=== PATIENT | female | born 1945 | race Caucasian/White ===

== ENCOUNTER → 2018-02-07 | Outpatient (CLI) | payer OTHER ==
[~2018-02-07] MED LIST: ASCO500T16 PO; CALCTAB7 PO; CHOL100027 PO; COEN100C15 PO; PROBIOTIC PO; ZEAXANTHIN PO
--- NOTE | 2018-02-07 12:47 | DIAGNOSTIC IMAGING REPORT ---
NASAL BONES MIN 3 VIEWS CLINICAL HISTORY: S09.93XA Facial [id number]. Fall. COMPARISON STUDY: None. FINDINGS: Mild displaced fracture at the nasal bones. This demonstrates 1 mm of depression. Nasal soft tissue swelling. The nasal septum appears intact. Paranasal sinuses are clear. The lamina papyracea and orbital floors appear intact. IMPRESSION: Slightly displaced nasal bone fracture. Electronically signed by: Ketan Alfred M.D. 02/07/2018 12:45 PM Dictated Date/Time: 02/07/2018 12:45 PM
== END | disposition home or self-care (01) ==
LOC: C.RAD1850 12:31
PROVIDERS: ATTEND Internal Medicine
DX: S09.93XA Unspecified injury of face, initial encounter (principal); X58.XXXA Exposure to other specified factors, initial encounter

== ENCOUNTER → 2018-02-14 | Outpatient (CLI) | payer OTHER ==
--- NOTE | 2018-02-14 14:37 | DIAGNOSTIC IMAGING REPORT ---
L HUMERUS MIN 2 VIEWS ROUTINE CLINICAL HISTORY: M79.603 Pain in [id number] COMPARISON: None. DISCUSSION: The bones and joint spaces appear intact. There is no evidence of fracture, dislocation or bony disease. There is no evidence for soft tissue swelling. IMPRESSION: Negative study. The above report was generated using voice recognition software. It may contain grammatical, syntax or spelling errors. Electronically signed by: Goyo Mar M.D. 02/14/2018 2:35 PM Dictated Date/Time: 02/14/2018 2:34 PM
--- NOTE | 2018-02-14 14:38 | DIAGNOSTIC IMAGING REPORT ---
L ELBOW MIN 3 VIEWS ROUTINE CLINICAL HISTORY: Left elbow pain. COMPARISON: Left forearm radiographs January 27, 2015. FINDINGS: Alignment of the left elbow is anatomic. No acute fracture or joint effusion is identified. Subtle cortical irregularity of the lateral aspect of the radial head is likely degenerative. There is mild osteophytosis within the left elbow. IMPRESSION: 1. No acute fracture or joint effusion of the left elbow. 2. Mild osteoarthritis of the left elbow. Subtle cortical irregularity of the lateral aspect of the left radial head is likely degenerative. Electronically signed by: Estevan Herron M.D. 02/14/2018 2:37 PM Dictated Date/Time: 02/14/2018 2:34 PM
== END | disposition home or self-care (01) ==
LOC: C.RAD1850 13:33
PROVIDERS: ATTEND Internal Medicine
DX: M79.603 Pain in arm, unspecified (principal)

== ENCOUNTER → 2018-06-08 | Outpatient (CLI) | payer OTHER ==
--- NOTE | 2018-06-09 08:10 | MAMMOGRAPHY REPORT ---
BILATERAL DIGITAL SCREENING MAMMOGRAM TOMOSYNTHESIS WITH CAD: 06/08/2018 CLINICAL HISTORY: Routine screening. Patient has no complaints. TECHNIQUE: The study was acquired using full field digital technology and interpreted from soft copy. Tomosynthesis (3D imaging) was done in the CC and MLO projections. A C-view reconstruction was then done. Current study was also evaluated with a Computer Aided Detection (CAD) system. COMPARISON: Comparison is made to exams dated: 05/07/2015 mammogram, 12/07/2011 mammogram - [facility], and 12/17/2008. BREAST COMPOSITION: There are scattered areas of fibroglandular density in both breasts. FINDINGS: No suspicious masses, calcifications, or areas of architectural distortion are noted in either breast . There has been no significant interval change compared to prior exams. IMPRESSION: ACR BI-RADS CATEGORY 1: NEGATIVE There is no mammographic evidence of malignancy. A 1 year screening mammogram is recommended.( 019) The patient will receive written notification of the results. Approximately 10% of breast cancers are not detected with mammography. A negative mammographic report should not delay biopsy if a clinically suggestive mass is present. Megan Gimenez M.D. ah/:06/08/2018 12:26:20 Hardness Inspector: Kendy Gardner, [facility] letter sent: Normal 1/2 BI-RADS Code: ACR BI-RADS Category 1: Negative
== END | disposition home or self-care (01) ==
LOC: C.MAMM 10:48
PROVIDERS: ATTEND Internal Medicine
DX: M85.851 Other specified disorders of bone density and structure, right thigh (principal); M85.852 Other specified disorders of bone density and structure, left thigh; Z78.0 Asymptomatic menopausal state; Z12.31 Encounter for screening mammogram for malignant neoplasm of breast

== ENCOUNTER → 2018-06-09 | Outpatient (CLI) | payer OTHER | END | disposition home or self-care (01) | LOC: C.MAMM 08:52 | PROVIDERS: ATTEND Internal Medicine | DX: M85.88 Other specified disorders of bone density and structure, other site (principal); M81.0 Age-related osteoporosis without current pathological fracture ==

== ENCOUNTER → 2018-07-04 | Outpatient (CLI) | payer OTHER ==
[2018-07-04 12:39] LABS: BASO % 0.5 %; BASO ABS # 0.03 K/uL (0-0.2); EOS % 3.2 %; EOS ABS # 0.19 K/uL (0-0.5); HEMATOCRIT 42.8 % (37-47); IG# 0.01 K/uL (0.00-0.02); LYMPH % 37.7 %; LYMPH ABS # 2.21 K/uL (1.2-3.4); MEAN CELL VOLUME 94.7 fL (80-100); MEAN CORPUSCULAR HGB CONC 32.7 g/dl (32-36); MEAN PLATELET VOLUME 10.6 fL (7.4-10.4); MONO % 7.8 %; MONO ABS # 0.46 K/uL (0.11-0.59); NEUT % 50.6 %; NEUT ABS # 2.96 K/uL (1.4-6.5); PLATELET COUNT 295 K/uL (130-400); RED CELL DISTRIBUTION WIDTH CV 13.6 % (11.5-14.5); RED CELL DISTRIBUTION WIDTH SD 47.4 fL (36.4-46.3); WHITE BLOOD COUNT 5.86 K/uL (4.8-10.8)
[2018-07-04 13:26] LABS: ALBUMIN 3.6 gm/dl (3.4-5.0); ALKALINE PHOSPHATASE 55 U/L (45-117); ALT/SGPT 16 U/L (12-78); AST/SGOT 12 U/L (15-37); BLOOD UREA NITROGEN 17 mg/dl (7-18); CARBON DIOXIDE 25 mmol/L (21-32); CHOLESTEROL 250 mg/dl (0-200); CREATININE 0.82 mg/dl (0.60-1.20); GLUCOSE 82 mg/dl (70-99); LDL CHOLESTEROL CALCULATED 167 mg/dl; POTASSIUM 4.4 mmol/L (3.5-5.1); SODIUM 138 mmol/L (136-145); TOTAL PROTEIN 6.9 gm/dl (6.4-8.2)
== END | disposition home or self-care (01) ==
LOC: C.LABBFT 08:54
PROVIDERS: ATTEND Physician Assistant Medical
DX: M81.0 Age-related osteoporosis without current pathological fracture (principal); E78.5 Hyperlipidemia, unspecified; D64.9 Anemia, unspecified

== ENCOUNTER 2023-10-25 12:28 | Inpatient (IN) ==
[2023-10-25 14:21] LABS: Hematocrit (blood only) 40.9 % (37.0-47.0); Hemoglobin 13.6 g/dl (12.0-16.0); Mean Corpuscular Hemoglobin 32.2 pg (25.0-34.0); Mean Corpuscular Hgb Conc 33.3 g/dL (32.0-36.0); Mean Corpuscular Volume 96.9 fL (80.0-100.0); Mean Platelet Volume 9.3 fL (9.4-12.4); Platelet Count 604 K/uL (130-400); RDW Coefficient of Variation 13.5 % (11.5-14.5); RDW Standard Deviation 47.8 fL (36.4-46.3); Red Blood Count 4.22 M/uL (4.20-5.40); White Blood Count 13.46 K/ul (4.8-10.8)
[2023-10-25 14:37] LABS: Alanine Aminotransferase 21 U/L (7-52); Albumin Globulin Ratio 1.7 (0.9-2); Albumin Level 4.5 gm/dl (3.4-5.0); Alkaline Phosphatase 139 U/L (34-104); Anion Gap 11 (3-11); Aspartate Aminotransferase 22 U/L (13-39); Bilirubin,Total 0.6 mg/dl (0.2-1.0); Blood Urea Nitrogen 12 mg/dl (6-23); Calcium 10.4 mg/dl (8.6-10.3); Carbon Dioxide 26 mmol/L (21-32); Chloride 100 mmol/L (98-107); Est GFR (Non-African American) 71.6 ml/min; Globulin 2.6 gm/dl (2.5-4.0); Glucose 84 mg/dl (70-99(Fasting)); Potassium 3.9 mmol/L (3.5-5.1); Sodium 137 mmol/L (136-145); Total Protein 7.1 gm/dl (6.0-8.3)
[2023-10-25 14:48] LABS: Partial Thromboplastin Time 28.2 Seconds (21.0-31.0); Prothrombin Time 10.8 Seconds (9.0-12.0)
--- NOTE | 2023-10-25 15:20 | Emergency Department Note ---
Impression & Plan Small bowel obstruction, Intussusception, ileocecal, Abdominal pain ED Provider Note NAME: SESAR SALAZAR AGE: 78 SEX: F : 1945 ARRIVES VIA: Walk-In INFORMANT: Patient, ED PROVIDER(S): Angel Dorsey MD CHIEF COMPLAINT: Abdominal pain, GI bleeding MEDICAL DECISION MAKING: Patient presents due to concern for abdominal pain associated GI bleeding. Patient does have diffuse tenderness on exam white count of 13 with a normal hemoglobin. CT of the abdomen pelvis was ordered along with IV morphine and IV Zofran. Patient reportedly is a shellfish allergy and is unsure as whether or not she can safely receive IV contrast so this was avoided and a CT without contrast was ordered. Patient's blood work shows a white count of 13 with a normal H&H. Thrombocytosis noted at 604. Kidney function is unremarkable. Alk phos of 139. CT abdomen pelvis that showed concern for intussusception and associated small bowel obstruction. I did speak with general surgery Dr. Ramírez who recommended repeat CT abdomen pelvis with p.o. and possible IV contrast if possible to further evaluate. I did speak with Dr. Mora who recommended discussing with surgery but no acute intervention or air enema at this time. I subsequently did speak with the on-call hospitalist service Dr. Wan and the patient was admitted to the medicine service. Discussion w/ other healthcare providers: Dr. Ramírez with general surgery Dr. Mora with gastroenterology Dr. Wan with inpatient medicine service Prior /Outside records reviewed: None Differential diagnosis: Appendicitis, ovarian cyst, ovarian torsion, ectopic , TOA, PID, diverticulitis, UTI, obstruction, inflammatory bowel disease, renal colic, PUD, pancreatitis, biliary pathology, hernia, volvulus, constipation, as well as other pathologies were considered. Diagnostics, as interpreted by me: ECG: None Cardiac monitoring: An order was placed for continuous cardiac monitoring. The monitor shows a rate of 82 with sinus rhythm. Patient was placed on pulse oximetry Medical decision rules: None Imaging studies: I informally interpreted the patient's CT abdomen pelvis which shows likely bowel obstruction with formal report to follow. HPI: Patient presents due to concern for abdominal pain and associated rectal bleeding. The patient states that she went to the bathroom twice today she just had blood come from her rectum. Patient is also had associated abdominal pain that she describes as diffuse. The patient is concerned that she is "internally bleeding" patient states that she did have a fall several weeks ago while she was in [place] seen in the emergency department there and had negative x- rays but was diagnosed with a rib contusion. Patient does not take any blood thinning medications no antiplatelets or Plavix. Patient denies any chest pains or shortness of breath patient denies any vomiting. No dysuria or hematuria. Patient states that she did have a colonoscopy not too long ago and she was told that she might have some diverticuli maybe some polyps but no other concerning findings. Patient states that she does have occasional constipation and hard stools but sometimes will have diarrhea. Patient denies any change in her bowel movement pattern or the fact that she has occasional pain with defecation but this is not new. PAST MEDICAL HISTORY: See Below PAST SURGICAL HISTORY: See Below SOCIAL HISTORY: See Below HOME MEDICATIONS: See Below ALLERGIES: See Below VITALS: See Below PHYSICAL EXAMINATION: GENERAL: NAD, non-toxic. EYE EXAM: Normal conjunctiva. PERRL, no anisocoria and EOM's grossly intact w/o pain. OROPHARYNX: Moist mucus membranes, grossly normal dentition. NECK: Supple, no nuchal rigidity, no adenopathy, non-tender. No signs of meningismus. FROM of the neck with good chin to chest and neck extension. No stridor. LUNGS: Clear to auscultation. Normal chest wall mechanics. HEART: NSR, no MRG. ABDOMEN: Abdomen soft, diffuse abdominal pain. BACK: No CVA TTP. SKIN: No rashes and no bruising. UPPER EXTREMITIES: Upper extremities are grossly normal. LOWER EXTREMITIES: Grossly normal, no edema. NEURO EXAM: A&O x3, cranial nerves II-XII grossly intact, normal speech, moves all 4 extremities. Past Med/Surg History Medical History Migraine hx Osteoporosis Hx: meningitis in early 40's Hiatal hernia PTSD (post-traumatic stress disorder) no meds at present Asthma mild > no inh use Lumbar disc disease Sensorineural hearing loss of both ears Pulsatile tinnitus of both ears Insomnia Hyperlipidemia f/u Dr. [place] frequently last one approx 7 mos ago> "has cracked ribs" Anemia Wrist fracture Cyst of ovary (08/27/12) hx Surgical History H/O hemicolectomy (10/26/23) Robotic Assisted Laparoscopic Hemicolectomy - Arjnu Ramírez DO, FACS History of right hemicolectomy Robotic assisted right hemicolectomy with primary anastomosis 26 October 2023Desiree History of right cataract extraction S/P trigger finger release right History of esophagogastroduodenoscopy (EGD) History of bladder surgery 2012> emergency bladder surgery due to complication during oophorectomy > [facility] History of surgery on wrist bilat > from fx'x History of oral surgery tooth extractions History of oophorectomy unsure of what side History of arthroscopy of knee bilat History of dilatation and curettage History of colonoscopy History of appendectomy Family History Family/Other Breast cancer Gastric neoplasm Heart disease Hypertension Pancreatic neoplasm Splenic neoplasm Father Hypertension Heart disease Mother Cancer Other Diabetes Lung disease Social History Smoking Status: Never smoker Tobacco Type: Cigarettes Cigarettes Per Day: quit "many years ago"; Second Hand Exposure: No; Do You Dip or Chew Tobacco: No; Hx Alcohol Use: Yes Alcohol type: wine Hx Substance Use: Yes Last Used Substance: Days (ago) Last Used Substance Other:: uses every night "to help her sleep" Substance Use Type Other:: Medical Marijuana Preferred Language: [place] Leonean Communication Ability: Effective Hearing Ability: Normal Training Program Developer Required: No Beliefs That Will Affect Care: None marital status: / Current Living Situation: Alone current occupational status: retired Other Information That Helps Us Care for You: No Feels Safe at Home: Yes Safety Concerns: Feels Safe At This Time Seatbelt Use: always Sunscreen Use: No Assistive Devices: None Allergies Allergies Allergy/AdvReac Type Severity Reaction Status Date / Time oxybutynin Allergy Severe TONGUE Verified 10/25/23 19:17 SWELLS, DRY MOUTH shellfish derived Allergy Severe "throat Verified 10/25/23 19:17 closes" Home Meds Home Medications Medication Instructions Recorded Confirmed ibuprofen 200 mg tablet 600 mg PO QID PRN Pain 11/07/18 10/25/23 Medical Marijuana 1 dose PO HS 09/26/21 10/25/23 cholecalciferol (vitamin D3) 100 1,000 unit PO DAILY 03/30/23 10/25/23 mcg (4,000 unit) capsule Previous Rx's Medication Instructions Recorded allopurinol 300 mg tablet 300 mg PO DAILY 90 days #90 tabs 01/26/23 Results & Data (ED) Vital Signs Vital Signs - 24 hr 10/25/23 12:49 10/25/23 14:39 10/25/23 15:18 Temperature 36.7 C Temperature Source Temporal Artery Scan Pulse Rate 91 H Pulse Rate [Left Finger] 90 69 Pulse Rhythm [Left Finger] Regular Pulse Strength [Left Finger] Normal Respiratory Rate 20 20 18 Respiratory Effort / Characteristics Non-Labored Spontaneous Non-Labored Spontaneous Non-Labored Spontaneous Respiratory Depth Normal Normal Normal Respiratory Pattern Regular Regular Blood Pressure 122/77 Blood Pressure [Right Arm] 125/79 113/60 Blood Pressure Mean 92 Blood Pressure Mean [Right Arm] 94 77 Blood Pressure Position Sitting Blood Pressure Position [Right Arm] Sitting Lying Pulse Oximetry 97 95 96 Oxygen Delivery Method Room Air Room Air Room Air Sepsis Recent Fever Within 48 Hours No Sepsis New/Unexplained Change in Mental Status No Sepsis Action Taken by Nursing No Action Required Home Medications Current Medication List: was personally reviewed by me Laboratory Data Attestation: I reviewed the patient's lab results. 10/27/23 06:21 10/27/23 06:21 Lab Results 10/25/23 10/25/23 Range/Units 13:55 13:58 WBC 13.46 H (4.8-10.8) K/ul RBC 4.22 (4.20-5.40) M/uL Hgb 13.6 (12.0-16.0) g/dl Hct 40.9 (37.0-47.0) % MCV 96.9 (80.0-100.0) fL MCH 32.2 (25.0-34.0) pg MCHC 33.3 (32.0-36.0) g/dL RDW Std Deviation 47.8 H (36.4-46.3) fL RDW Coeff of Ortiz 13.5 (11.5-14.5) % Plt Count 604 H (130-400) K/uL MPV 9.3 L (9.4-12.4) fL PT 10.8 (9.0-12.0) Seconds INR 1.0 (0.9-1.1) APTT 28.2 (21.0-31.0) Seconds PTT Ratio 1.0 Sodium 137 (136-145) mmol/L Potassium 3.9 (3.5-5.1) mmol/L Chloride 100 (98-107) mmol/L Carbon Dioxide 26 (21-32) mmol/L Anion Gap 11 (3-11) BUN 12 (6-23) mg/dl Creatinine 0.80 (0.6-1.2) mg/dl Est Cr Clr Drug Dosing Not Reportable Est GFR ( Amer) 83.0 ml/min Est GFR (Non-Af Amer) 71.6 ml/min BUN/Creatinine Ratio 15.0 (10-20) Glucose 84 (70-99(Fasting)) mg/dl Calcium 10.4 H (8.6-10.3) mg/dl Total Bilirubin 0.6 (0.2-1.0) mg/dl AST 22 (13-39) U/L ALT 21 (7-52) U/L Alkaline Phosphatase 139 H (34-104) U/L Troponin I High Sens 3.0 (0-14) pg/ml Total Protein 7.1 (6.0-8.3) gm/dl Albumin 4.5 (3.4-5.0) gm/dl Globulin 2.6 (2.5-4.0) gm/dl Albumin/Globulin Ratio 1.7 (0.9-2) Carcinoembryonic Ag 1.7 (0-2.5) ng/ml Blood Type A Positive Antibody Screen NEGATIVE Administered Medications Acetaminophen (Acetaminophen 500 Mg Tab) 1,000 mg PO Q8H COLIN Stop: 11/26/23 10:14 Last Admin: 10/27/23 17:59 Dose: 1,000 mg Documented By: Admin: 10/27/23 10:19 Dose: 1,000 mg Documented By: KIKE Dextrose (Dextrose 50% 50 Ml Syringe) 25 - 50 ml IV UD PRN; Protocol PRN Reason: Hypoglycemia Protocol Stop: 11/25/23 09:14 Last Admin: 10/26/23 09:33 Dose: 25 ml Documented By: CAL Enoxaparin Sodium (Enoxaparin Inj 40 Mg/0.4 Ml Syr) 40 mg SQ QAM COLIN Stop: 11/26/23 09:59 Last Admin: 10/27/23 10:45 Dose: 40 mg Documented By: KIKE Lactated Ringer's (Lr) 1,000 mls @ 125 mls/hr IV .Q8H [facility] Stop: 11/24/23 19:59 Last Admin: 10/27/23 19:20 Dose: 125 mls/hr Documented By: Infusion: 10/27/23 19:20 Dose: Infused Documented By: Admin: 10/27/23 11:33 Dose: 125 mls/hr Documented By: Infusion: 10/27/23 11:33 Dose: Infused Documented By: Admin: 10/27/23 06:21 Dose: 125 mls/hr Documented By: Infusion: 10/27/23 05:46 Dose: Infused Documented By: Admin: 10/26/23 21:46 Dose: 125 mls/hr Documented By: Infusion: 10/26/23 21:46 Dose: Infused Documented By: Admin: 10/26/23 17:34 Dose: 125 mls/hr Documented By: Infusion: 10/26/23 13:16 Dose: Infused Documented By: Admin: 10/26/23 05:16 Dose: 125 mls/hr Documented By: Infusion: 10/26/23 05:03 Dose: Infused Documented By: Admin: 10/25/23 21:03 Dose: 125 mls/hr Documented By: ART Ketorolac Tromethamine (Ketorolac Tromethamine 15 Mg/Ml Vial) 15 mg IV Q6H [facility] Stop: 11/01/23 10:14 Last Admin: 10/27/23 21:31 Dose: 15 mg Documented By: Admin: 10/27/23 16:03 Dose: 15 mg Documented By: Admin: 10/27/23 10:19 Dose: 15 mg Documented By: KIKE Ondansetron HCl (Ondansetron Inj 2 Mg/Ml 2 Ml Vial) 4 mg IV Q4H PRN PRN Reason: Nausea Stop: 11/24/23 19:49 Last Admin: 10/27/23 16:03 Dose: 4 mg Documented By: Admin: 10/27/23 10:47 Dose: 4 mg Documented By: Admin: 10/25/23 21:04 Dose: 4 mg Documented By: ART Oxycodone HCl (Oxycodone Hcl Ir 5 Mg Tab (Immediate Release)) 10 mg PO Q4H PRN PRN Reason: SEVERE Pain (7,8,9,10) Stop: 11/10/23 10:01 Last Admin: 10/27/23 19:23 Dose: 10 mg Documented By: RUI Phenol (Chloraseptic 1.4% Soln 180 Ml Btl) 2 sprays MT Q2H PRN PRN Reason: mouth pain Stop: 11/25/23 21:59 Last Admin: 10/27/23 08:27 Dose: 2 sprays Documented By: Admin: 10/26/23 22:56 Dose: 2 sprays Documented By: VENICE Discontinued Medications Bupivacaine HCl (Bupivacaine 0.5 % 5 Mg/1 Ml Mpf 30ml Vial) Confirm Administered Dose 30 ml .ROUTE .STK-MED ONE Stop: 10/26/23 10:40 Last Admin: 10/26/23 15:18 Dose: 30 ml Documented By: DARELL Bupivacaine Liposome (Bupivacaine Liposome 1.3% 266 Mg/20 Ml Vial) Confirm Administered Dose 266 mg .ROUTE .STK-MED ONE Stop: 10/26/23 10:40 Last Admin: 10/26/23 15:19 Dose: 266 mg Documented By: DARELL Hydromorphone HCl (Hydromorphone Inj 1 Mg/Ml Syringe) 0.25 mg IV Q5M PRN PRN Reason: PACU Use Only-Pain Stop: 10/26/23 19:09 Last Admin: 10/26/23 16:10 Dose: 0.25 mg Documented By: Admin: 10/26/23 16:05 Dose: 0.25 mg Documented By: Admin: 10/26/23 16:00 Dose: 0.25 mg Documented By: Admin: 10/26/23 15:55 Dose: 0.25 mg Documented By: SED Sodium Chloride (Nss) 1,000 mls @ 999 mls/hr IV .Q1H1M ONE Stop: 10/25/23 16:53 Last Infusion: 10/25/23 17:22 Dose: Infused Documented By: Admin: 10/25/23 16:23 Dose: 999 mls/hr Documented By: ML Acetaminophen (Ofirmev) 1,000 mg in 100 mls @ 400 mls/hr IV NOW STA Stop: 10/25/23 18:20 Last Infusion: 10/25/23 18:49 Dose: Infused Documented By: Admin: 10/25/23 18:25 Dose: 400 mls/hr Documented By: CATHRYN Acetaminophen (Ofirmev) 1,000 mg in 100 mls @ 400 mls/hr IV NOW STA Stop: 10/26/23 00:09 Last Infusion: 10/26/23 00:52 Dose: Infused Documented By: KSJacob Admin: 10/26/23 00:33 Dose: 400 mls/hr Documented By: RUI Lorazepam 0.25 mg/ Syringe 0.25 mls @ 2 mls/min IV NOW STA Stop: 10/26/23 02:36 Last Admin: 10/26/23 02:43 Dose: 2 mls/min Documented By: RUI Acetaminophen (Ofirmev) 1,000 mg in 100 mls @ 400 mls/hr IV Q8H PRN PRN Reason: Pain or Fever Stop: 10/29/23 06:24 Last Infusion: 10/26/23 08:30 Dose: Infused Documented By: Admin: 10/26/23 08:10 Dose: 400 mls/hr Documented By: CAL Lactated Ringer's (Lr) 1,000 mls @ 15 mls/hr IV .Q24H [facility] Stop: 11/25/23 10:44 Last Infusion: 10/26/23 11:40 Dose: Infused Documented By: Admin: 10/26/23 10:43 Dose: 15 mls/hr Documented By: CANDY Cefoxitin Sodium 2,000 mg/ (Dextrose) 50 mls @ 100 mls/hr IV NOW STA; Protocol Stop: 10/26/23 12:02 Last Infusion: 10/26/23 17:34 Dose: Infused Documented By: Admin: 10/26/23 12:10 Dose: 100 mls/hr Documented By: DELPHINE Acetaminophen (Ofirmev) 1,000 mg in 100 mls @ 400 mls/hr IV Q8H [facility] Stop: 10/29/23 15:59 Last Infusion: 10/27/23 07:42 Dose: Infused Documented By: Admin: 10/27/23 07:27 Dose: 400 mls/hr Documented By: Infusion: 10/27/23 00:56 Dose: Infused Documented By: Admin: 10/27/23 00:05 Dose: 400 mls/hr Documented By: Admin: 10/26/23 17:25 Dose: Not Given Documented By: CAL Cefoxitin Sodium 2,000 mg/ (Dextrose) 50 mls @ 100 mls/hr IV Q6H [facility]; Protocol Stop: 10/27/23 17:14 Last Infusion: 10/27/23 12:03 Dose: Infused Documented By: Admin: 10/27/23 11:33 Dose: 100 mls/hr Documented By: Infusion: 10/27/23 06:09 Dose: Infused Documented By: Admin: 10/27/23 05:33 Dose: 100 mls/hr Documented By: Infusion: 10/27/23 00:57 Dose: Infused Documented By: Admin: 10/27/23 00:05 Dose: 100 mls/hr Documented By: Infusion: 10/26/23 18:40 Dose: Infused Documented By: Admin: 10/26/23 18:10 Dose: 100 mls/hr Documented By: CAL Morphine Sulfate (Morphine Sulfate 4 Mg/Ml 1 Ml Carp\\Vial) 4 mg IV NOW STA Stop: 10/25/23 15:54 Last Admin: 10/25/23 16:23 Dose: 4 mg Documented By: CATHRYN Morphine Sulfate (Morphine Sulfate 4 Mg/Ml 1 Ml Carp\\Vial) 4 mg IV Q3H PRN PRN Reason: Pain (6,7,8,9,10) Stop: 11/08/23 19:49 Last Admin: 10/27/23 03:28 Dose: 4 mg Documented By: Admin: 10/26/23 22:59 Dose: 4 mg Documented By: Admin: 10/26/23 19:32 Dose: 4 mg Documented By: Admin: 10/26/23 05:15 Dose: 4 mg Documented By: Admin: 10/25/23 23:17 Dose: 4 mg Documented By: Admin: 10/25/23 21:04 Dose: 4 mg Documented By: ART Ondansetron HCl (Ondansetron Inj 2 Mg/Ml 2 Ml Vial) 4 mg IV NOW STA Stop: 10/25/23 15:54 Last Admin: 10/25/23 16:23 Dose: 4 mg Documented By: ML Imaging Data Radiologist's Impression: Abdomen/Pelvis CT 10/25/23 15:56 CT abd pelvis wo con CLINICAL HISTORY: diffuse ab pain, GIB TECHNIQUE: Helical axial images of the abdomen and pelvis were obtained. Automated dose lowering techniques and/or adjustment according to patient size were utilized for this exam. This exam was performed without intravenous contrast. CT DOSE: 676.46 mGy.cm COMPARISON: Comparison is made to CT abdomen pelvis 08/20/2014 FINDINGS: Lower chest: No acute abnormality. Liver: Unremarkable. No focal lesions are seen. Gallbladder and biliary tree: No calcified gallstones. Normal caliber wall. No intra- or extrahepatic biliary ductal dilation. Pancreas: Unremarkable, no focal lesions. Spleen: Unremarkable. Adrenals: Unremarkable. Kidneys and ureters: Unremarkable. Bladder: Unremarkable. Reproductive organs: Unremarkable. Bowel: Numerous dilated loops of small bowel measure up to 37 mm in diameter. There is a focus of intussusception at the ileocecal junction with an adjacent lipomatous lesion noted in the colon. A moderate hiatal hernia is seen. Diverticulosis without diverticulitis noted. The colon is moderately under distended. Lymph nodes Retroperitoneal: Unremarkable. Pelvic: Unremarkable. Mesenteric: Unremarkable. Peritoneum: Mild ascites is seen. Vessels: Atherosclerotic calcifications are seen. Abdominal wall: Unremarkable. Bones: Unremarkable. IMPRESSION: Small bowel obstruction is seen likely secondary to a enterocolic intussusception. A lipomatous lesion in the ascending colon, not seen in the prior exam, is being likely lead point. No evidence of bowel ischemia or perforation is seen. Additional findings are as above. ACT 112: Negative or not required by law. Electronically signed by: Jason Stewart M.D. 10/25/2023 5:02 PM Discharge Plan Visit Data Chief Complaint: GI Bleed Stated Complaint: BLOODY STOOL, CHEST PAIN/ABDOMINAL PAIN ED Provider: Angel Dorsey Discharge Problem: Small bowel obstruction, Intussusception, ileocecal, Abdominal pain Patient Disposition: Admitted As Inpatient Discharge Instructions Interventions: ED Discharge Assessment Last Done: 10/25/23 18:55 Discharge Problem: Abdominal pain Qualifiers: Abdominal location: generalized Qualified Code(s): R10.84 - Generalized abdominal pain
[2023-10-25] MEDS ORDERED: ONDANSETRON INJ 2 MG/ML 2 ML VIAL IV STA (15:53)
[2023-10-25] MEDS ORDERED: SODIUM CHLORIDE 0.9% 1,000 ML IV ONE (15:53)
[2023-10-25] MEDS ORDERED: MoRPHine SULFATE 4 MG/ML 1 ML CARP\\VIAL IV STA (15:53)
--- NOTE | 2023-10-25 17:03 | CT Scan Report ---
CT abd pelvis wo con CLINICAL HISTORY: diffuse ab pain, GIB TECHNIQUE: Helical axial images of the abdomen and pelvis were obtained. Automated dose lowering tech niques and/or adjustment according to patient size were utilized for this exam. This exam was perfor med without intravenous contrast. CT DOSE: 676.46 mGy.cm COMPARISON: Comparison is made to CT abdomen pelvis 08/20/2014 FINDINGS: Lower chest: No acute abnormality. Liver: Unremarkable. No focal lesions are seen. Gallbladder and biliary tree: No calcified gallstones. Normal caliber wall. No intra- or extrahepatic biliary ductal dilation. Pancreas: Unremarkable, no focal lesions. Spleen: Unremarkable. Adrenals: Unremarkable. Kidneys and ureters: Unremarkable. Bladder: Unremarkable. Reproductive organs: Unremarkable. Bowel: Numerous dilated loops of small bowel measure up to 37 mm in diameter. There is a focus of int ussusception at the ileocecal junction with an adjacent lipomatous lesion noted in the colon. A moder ate hiatal hernia is seen. Diverticulosis without diverticulitis noted. The colon is moderately under distended. Lymph nodes Retroperitoneal: Unremarkable. Pelvic: Unremarkable. Mesenteric: Unremarkable. Peritoneum: Mild ascites is seen. Vessels: Atherosclerotic calcifications are seen. Abdominal wall: Unremarkable. Bones: Unremarkable. IMPRESSION: Small bowel obstruction is seen likely secondary to a enterocolic intussusception. A lipomatous lesio n in the ascending colon, not seen in the prior exam, is being likely lead point. No evidence of najma l ischemia or perforation is seen. Additional findings are as above. ACT 112: Negative or not required by law. Electronically signed by: Jason Stewart M.D. 10/25/2023 5:02 PM
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
[2023-10-25] MEDS ORDERED: ACETAMINOPHEN 1,000 MG/100 ML VIAL IV STA ×2 (18:06→23:55)
[2023-10-25 19:05] LABS: Hemoglobin 12.1 g/dl (12.0-16.0)
[2023-10-25] MEDS ORDERED: MoRPHine SULFATE 2 MG/ML CARP IV PRN (19:50)
--- NOTE | 2023-10-25 20:02 | Surgery Consultation ---
Date of Consultation October 25, 2023 Assessment & Plan (1) Intussusception, ileocecal: (2) Colonic mass: (3) Small bowel obstruction: Patient is being admitted on the hospitalist service. From a surgical perspective we recommend proceeding as follows: Implement n.p.o. status Provide IV fluid for hydration Follow serial labs Provide analgesics Provide antiemetics Obtain a chest x-ray for preoperative purposes I had a lengthy discussion with the patient and her son who is present at the bedside. I discussed with them the findings on her CT scan. I discussed with them that intussusception in adult is oftentimes precipitated by a colon mass causing a lead point resulting in intussusception causing the symptoms that patient presents with. I discussed with the patient that we are tentatively recommending the patient undergo a diagnostic laparoscopy with possible colon resection on 10/26/2023. I discussed with the patient that the appearance of the colon mass does appear benign but there is no way to ascertain this until it is evaluated by pathology at time of removal. They expressed understanding's and wish to proceed. We have tentatively scheduled the patient for operative intervention with Dr. Ramírez on 10/26/2023. I have discussed with the admitting hospitalist service and they will provide the preoperative evaluation to ensure that there are no precluding issues to the patient undergoing surgery. Utilize SCDs only for DVT prevention, avoid chemical means due to planned surgery Additional recommendations be forthcoming based on her clinical course as unfolds as well as operative findings. Supervising Physician Co-Signing Physician Notes pnt d/w KATINA Hernandez, labs and imaging reviewed, agree with above. Admitted with ileocolic intussusception with likely benign colon mass as leadpoint. Scan reviewed and interpreted by myself, agree with findings. Will tentatively plan for diagnostic laparoscopy, laparoscopic right hemicolectomy tomorrow. History of Present Illness Reason for Consultation: Intussusception Small bowel obstruction Colon mass Attending Physician: Tommy Wan MD History of Present Illness This is a 78-year-old female who presented to the emergency department at [facility] secondary to bright red blood per rectum. The patient notes that for years she has had issues with alternating diarrhea and constipation. Patient notes that over the iday which was approximately 1 week ago she was visiting a friend in [place] when she fell down a flight of steps. She is unsure how she fell and specifically does not remember if she had a syncopal episode or if she tripped and fell. She says that she received care at a hospital in [place] where she said she did not have any broken bones but she did have bruised ribs. Secondary to her bruised ribs she has been taking narcotic pain medications and because of this her constipation has been exacerbated. She therefore took some milk of magnesia to help alleviate this problem. The patient notes that she was doing reasonably well until the evening of 10/24/2023 she had a bowel movement consisted of bright red blood per rectum. She notes that she had several more recurrences of this type of event the morning of 10/25/2023 prompting her visit to the emergency department. She notes that she does not have any chest pain or shortness of breath but does admit to some lightheadedness at times. She has some generalized abdominal pain and feels bloated. She denies any modifying factors to her pain. She has had associated nausea and vomiting but has not had any emesis in nearly 12 hours. She denies any recent weight loss. She notes that her mother did have colon cancer. The patient also reports that she did have a colonoscopy most recently in 2020. During this procedure she did have polyps in the ascending colon removed. Pathology from this showed the patient did not have any invasive carcinoma but she did have hyperplastic polyps. She also had numerous random colon biopsies during this procedure which were all negative for colitis, dysplasia, or malignancy. Patient also reports that she has had prior abdominal surgeries. She notes that she has had an appendectomy. She has also had a laparoscopy where she had a right ovarian cyst removed. During this procedure the patient was noted to have a ureteral injury requiring urologic surgery. In addition, the patient reports that during childbirth she had a rectal injury secondary to an episiotomy performed by her director of exhibits because of this she has very poor rectal sphincter control. She notes that she does not take any anticoagulants. Since arrival to the hospital this patient has had labs and imaging which I independent reviewed. The patient had numerous dilated loops of small bowel with a focus of intussusception at the ileocecal junction causing a small bowel obstruction. It appeared that there was a lipomatous lesion noted in the colon which appeared to be the lead point of this intussusception. There not appear to be any evidence of bowel ischemia or perforation. Labs included a CBC were white blood cell count was elevated at 13.4. Hemoglobin was within normal range and hematocrit was slightly low at 36. Platelet count was 604,000. Coagulation studies were noted to be normal. Chemistry profile showed sodium and potassium along with the BUN and creatinine were normal. Patient did have a slight elevation of her alkaline phosphatase at 139. Her bilirubin and transaminases were nonelevated. An EKG was performed which showed sinus rhythm without changes indicative of acute ischemia. At the time of my interview she was resting comfortably in bed and she was in no distress. Allergies Allergy/AdvReac Type Severity Reaction Status Date / Time oxybutynin Allergy Severe TONGUE Verified 10/25/23 19:17 SWELLS, DRY MOUTH shellfish derived Allergy Severe "throat Verified 10/25/23 19:17 closes" Home Medications Medication Instructions Recorded Confirmed Type ibuprofen 200 mg tablet 600 mg PO QID PRN Pain 11/07/18 10/25/23 History Medical Marijuana 1 dose PO HS 09/26/21 10/25/23 History allopurinol 300 mg tablet 300 mg PO DAILY 90 days #90 tabs 01/26/23 10/25/23 Rx cholecalciferol (vitamin D3) 100 1,000 unit PO DAILY 03/30/23 10/25/23 History mcg (4,000 unit) capsule Patient History Medical History Migraine hx Osteoporosis Hx: meningitis in early 40s Hiatal hernia PTSD (post-traumatic stress disorder) no meds at present Asthma mild > no inh use Lumbar disc disease Sensorineural hearing loss of both ears Pulsatile tinnitus of both ears Insomnia Hyperlipidemia f/u Dr. [place] frequently last one approx 7 mos ago> "has cracked ribs" Anemia Wrist fracture Cyst of ovary (08/27/12) hx Surgical History History of right cataract extraction S/P trigger finger release right History of esophagogastroduodenoscopy (EGD) History of bladder surgery 2012> emergency bladder surgery due to complication during oophorectomy > [facility] History of surgery on wrist bilat > from fx'x History of oral surgery tooth extractions History of oophorectomy unsure of what side History of arthroscopy of knee bilat History of dilatation and curettage History of colonoscopy History of appendectomy Family History Family/Other Breast cancer Gastric neoplasm Heart disease Hypertension Pancreatic neoplasm Splenic neoplasm Father Hypertension Heart disease Mother Cancer Other Diabetes Lung disease Social History Smoking Status: Never smoker Tobacco Type: Cigarettes Cigarettes Per Day: quit "many years ago"; Second Hand Exposure: No; Do You Dip or Chew Tobacco: No; Hx Alcohol Use: Yes Alcohol type: wine Hx Substance Use: Yes (medical marijuana) Last Used Substance Other:: uses every night "to help her sleep" Substance Use Type Other:: medical card at Preferred Language: Samoan Communication Ability: Effective Hearing Ability: Normal Ccie Required: No Beliefs That Will Affect Care: None marital status: / Current Living Situation: Alone current occupational status: retired Feels Safe at Home: Yes Seatbelt Use: always Sunscreen Use: No Assistive Devices: Contacts, Glasses and Hearing Aid - Bilateral Review of Systems Constitutional: no fever, no chills and no weight loss Ear, Nose, Mouth, Throat: no ear pain Respiratory: no cough and no dyspnea Cardiovascular: no chest pain Gastrointestinal: as per Subjective / HPI Genitourinary: no dysuria Musculoskeletal: + back pain Integumentary: no rash Neurologic: no localized weakness Physical Exam Constitutional: WD/WN, vitals as above Eyes: no conjunctival abnormality ENMT: Ears: no hearing impairment and no external ear abnormality Mouth: no oropharynx abnormality Neck: trachea midline Respiratory: normal respiratory effort; no respiratory distress and no labored breathing Cardiovascular: Rate/Rhythm: regular rate and regular rhythm Gastrointestinal (Abdomen): Abdomen is minimally distended. Bowel sounds are present. Her abdomen is nonrigid and soft. Patient did have generalized pain with palpation throughout her abdomen but she did not have any rebound tenderness or guarding. Musculoskeletal: No calf tenderness Skin: no rashes Neurologic: moves all extremities Psychiatric: A+Ox3, euthymic affect Results & Data Vital Signs (Past 12 Hours) Vital Signs Temp Pulse Pulse Resp BP BP Pulse Ox 10/25/23 19:21 76 10/25/23 17:26 76 19 133/69 96 10/25/23 17:26 76 96 10/25/23 15:18 69 18 113/60 96 10/25/23 14:39 90 20 125/79 95 10/25/23 12:49 36.7 C 91 H 20 122/77 97 O2 Del Method 10/25/23 19:21 10/25/23 17:26 Room Air 10/25/23 17:26 Room Air 10/25/23 15:18 Room Air 10/25/23 14:39 Room Air 10/25/23 12:49 Room Air PG Care Time/CCT Total # of Minutes Spent Total Time Spent with Patient: Total time spent is greater than 50% in coordination of care (as documented) at patient's floor/unit and/or counseling patient: Coding Level of Care Code 12691 INT INP/OBS CARE 75MIN Diagnoses Intussusception, ileocecal K56.1 Colonic mass K63.89 Small bowel obstruction K56.609
[2023-10-25] MEDS: LACTATED RINGER'S 1,000 ML IV SCH (21:03)
[2023-10-25] MEDS: MoRPHine SULFATE 4 MG/ML 1 ML CARP\\VIAL IV PRN ×2 (21:04→23:17)
[2023-10-25] MEDS: ONDANSETRON INJ 2 MG/ML 2 ML VIAL IV PRN (21:04)
[2023-10-26 02:20] LABS: Basophils # (auto) 0.03 K/uL (0.00-0.20); Basophils % (auto) 0.4 %; Eosinophils % (auto) 1.5 %; Hematocrit (blood only) 31.7 % (37.0-47.0); Hemoglobin 10.5 g/dl (12.0-16.0); Immature Granulocytes # (auto) 0.05 K/uL (0.01-0.20); Immature Granulocytes % (auto) 0.7 %; Lymphocytes # (auto) 3.12 K/uL (1.20-3.40); Lymphocytes % (auto) 46.4 %; Mean Corpuscular Hemoglobin 31.9 pg (25.0-34.0); Mean Corpuscular Hgb Conc 33.1 g/dL (32.0-36.0); Mean Corpuscular Volume 96.4 fL (80.0-100.0); Mean Platelet Volume 9.5 fL (9.4-12.4); Monocytes # (auto) 0.53 K/uL (0.11-0.59); Monocytes % (auto) 7.9 %; Neutrophils % (auto) 43.1 %; Platelet Count 447 K/uL (130-400); RDW Coefficient of Variation 13.6 % (11.5-14.5); RDW Standard Deviation 47.8 fL (36.4-46.3); Red Blood Count 3.29 M/uL (4.20-5.40); White Blood Count 6.73 K/ul (4.8-10.8)
[2023-10-26 02:25] LABS: Albumin Globulin Ratio 1.8 (0.9-2); Albumin Level 3.4 gm/dl (3.4-5.0); BUN Creatinine Ratio 14.5 (10-20); Bilirubin,Total 0.4 mg/dl (0.2-1.0); Calcium 8.8 mg/dl (8.6-10.3); Creatinine Clr Calc Pharmacy 57.4 ml/min; Est GFR (Non-African American) 84.6 ml/min; Globulin 1.9 gm/dl (2.5-4.0); Total Protein 5.3 gm/dl (6.0-8.3)
[2023-10-26] MEDS ORDERED: LORazepam 0.25 MG in SYRINGE 0.125 ML IV STA (02:35)
[2023-10-26] MEDS: MoRPHine SULFATE 4 MG/ML 1 ML CARP\\VIAL IV PRN ×3 (05:15→22:59)
[2023-10-26] MEDS: LACTATED RINGER'S 1,000 ML IV SCH ×3 (05:16→21:46)
[2023-10-26] MEDS ORDERED: ACETAMINOPHEN 1,000 MG/100 ML VIAL IV PRN (06:25)
--- NOTE | 2023-10-26 08:08 | XRay Report ---
SINGLE VIEW CHEST CLINICAL HISTORY: Preoperative examination. FINDINGS: An AP, portable, upright chest radiograph is compared to study dated 03/22/2023. The cardiome diastinal silhouette is top normal for projection noting atherosclerotic calcification of the thoraci c aorta. Chronic interstitial thickening is similar to previous. There is mild bibasilar scarring/ate lectasis. The lungs and pleural spaces are otherwise clear. No pneumothorax is seen. The skeletal str uctures are osteopenic. There are chronic/healed left-sided rib fractures. IMPRESSION: No active disease in the chest. ACT 112: Negative or not required by law. Electronically signed by: Narciso Post M.D. 10/26/2023 8:07 AM
[2023-10-26] MEDS ORDERED: DEXTROSE 50% 50 ML SYRINGE IV PRN (09:15)
[2023-10-26] MEDS ORDERED: DEXAMETHASONE SOD INJ 4 MG/ML VIAL ONE (09:21)
[2023-10-26] MEDS ORDERED: ROCURONIUM BROMIDE 10 MG/ML 5 ML VIAL IV ONE ×2 (09:21→12:56)
[2023-10-26] MEDS ORDERED: ONDANSETRON INJ 2 MG/ML 2 ML VIAL ONE (09:21)
[2023-10-26] MEDS ORDERED: PROPOFOL IV EMULSION 10 MG/ML 20 ML VIAL IV ONE (09:21)
[2023-10-26] MEDS ORDERED: fentaNYL citrate PF 100 MCG/2 ML VIAL ONE ×3 (09:22→13:22)
[2023-10-26] MEDS ORDERED: MIDAZOLAM HCL 1 MG/ML 2ML VIAL ONE (09:22)
[2023-10-26] MEDS ORDERED: SUGAMMADEX SODIUM 200 MG/2 ML VIAL IV ONE (09:22)
--- NOTE | 2023-10-26 09:38 | Anesthesiology Consultation ---
Date of Service October 26, 2023 Assessment & Plan (1) Encounter for pre-operative examination: Chart Review Chart Review: Acceptable Risk for Surgery and Patient NOT seen in Pre Admission Testing Consults Requested none History Surgery Operation Date: 10/26/23 07:00 Proposed Procedures p Diagnostic Laparoscoy, Possible Hemicolectomy - Arjun Ramírez DO, FACS Height/Weight Height: 5 ft 3 in Weight: 61.2 kg Allergies Allergy/AdvReac Type Severity Reaction Status Date / Time oxybutynin Allergy Severe TONGUE Verified 10/25/23 19:17 SWELLS, DRY MOUTH shellfish derived Allergy Severe "throat Verified 10/25/23 19:17 closes" Medications Home Medications Medication Instructions Recorded Confirmed Last Taken ibuprofen 200 mg tablet 600 mg PO QID PRN Pain 11/07/18 10/25/23 10/24/23 Medical Marijuana 1 dose PO HS 09/26/21 10/25/23 10/24/23 allopurinol 300 mg tablet 300 mg PO DAILY 90 days #90 tabs 01/26/23 10/25/23 10/24/23 cholecalciferol (vitamin D3) 100 1,000 unit PO DAILY 03/30/23 10/25/23 10/24/23 mcg (4,000 unit) capsule Active Medications Generic Name Dose Route Start Last Admin Trade Name Freq PRN Reason Stop Dose Admin Dextrose 25 - 50 ml 10/26/23 09:15 10/26/23 09:33 Dextrose 50% 50 Ml Syringe IV 11/25/23 09:14 25 ml UD PRN Administration Hypoglycemia Protocol Protocol Lactated Ringer's 1,000 mls @ 125 mls/hr 10/25/23 20:00 10/26/23 05:16 Lr IV 11/24/23 19:59 125 mls/hr .Q8H COLIN Administration Acetaminophen 1,000 mg in 100 mls @ 400 mls/hr 10/26/23 06:25 10/26/23 08:30 Ofirmev IV 10/29/23 06:24 Infused Q8H PRN Infusion Pain or Fever Morphine Sulfate 4 mg 10/25/23 19:50 10/26/23 05:15 Morphine Sulfate 4 Mg/Ml 1 Ml Carp\\Vial IV 11/08/23 19:49 4 mg Q3H PRN Administration Pain (6,7,8,9,10) Ondansetron HCl 4 mg 12/04/23 19:50 10/25/23 21:04 Ondansetron Inj 2 Mg/Ml 2 Ml Vial IV 11/24/23 19:49 4 mg Q4H PRN Administration Nausea Past Medical History Medical History Migraine hx Osteoporosis Hx: meningitis in early 40's Hiatal hernia PTSD (post-traumatic stress disorder) no meds at present Asthma mild > no inh use Lumbar disc disease Sensorineural hearing loss of both ears Pulsatile tinnitus of both ears Insomnia Hyperlipidemia f/u Dr. [place] frequently last one approx 7 mos ago> "has cracked ribs" Anemia Wrist fracture Cyst of ovary (08/27/12) hx Past Family History Family History Family/Other Breast cancer Gastric neoplasm Heart disease Hypertension Pancreatic neoplasm Splenic neoplasm Father Hypertension Heart disease Mother Cancer Other Diabetes Lung disease Past Surgical History Surgical History History of right cataract extraction S/P trigger finger release right History of esophagogastroduodenoscopy (EGD) History of bladder surgery 2012> emergency bladder surgery due to complication during oophorectomy > [facility] History of surgery on wrist bilat > from fx'x History of oral surgery tooth extractions History of oophorectomy unsure of what side History of arthroscopy of knee bilat History of dilatation and curettage History of colonoscopy History of appendectomy Social History Smoking Status: Never smoker Smoking cigarettes per day: quit "many years ago" Do You Dip or Chew Tobacco: No Hx Alcohol Use: Yes Alcohol type: wine alcohol intake frequency: holidays/special occasions only Hx Substance Use: Yes substance use type: marijuana Substance Use Type Other:: Medical Marijuana Last Used Substance: Days (ago) Last Used Substance Other:: uses every night "to help her sleep" Physical Exam Vital Signs Last Vital Signs Temp 36.7 C 10/26/23 07:52 Pulse 71 10/26/23 07:52 Resp 14 10/26/23 07:52 BP 108/68 10/26/23 07:52 Pulse Ox 91 10/26/23 07:52 O2 Del Method Room Air 10/26/23 07:52 Testing Laboratory Results 10/26/23 01:42 10/26/23 01:36 PT 10.8 Seconds (9.0-12.0) 10/25/23 13:55 INR 1.0 (0.9-1.1) 10/25/23 13:55 APTT 28.2 Seconds (21.0-31.0) 10/25/23 13:55 Blood Type A Positive 10/25/23 13:55 Antibody Screen NEGATIVE 10/25/23 13:55 Electrocardiogram Date: 10/25/23 HR 83. Normal sinus rhythm Cannot rule out Anterior infarct , age undetermined Abnormal ECG When compared with ECG of 28-JAN-2015 16:29, No significant change was found Chest X-Ray Date: 10/25/23 SINGLE VIEW CHEST CLINICAL HISTORY: Preoperative examination. FINDINGS: An AP, portable, upright chest radiograph is compared to study dated 03/22/2023. The cardiomediastinal silhouette is top normal for projection noting atherosclerotic calcification of the thoracic aorta. Chronic interstitial thickening is similar to previous. There is mild bibasilar scarring/atelectasis. The lungs and pleural spaces are otherwise clear. No pneumothorax is seen. The skeletal structures are osteopenic. There are chronic/healed left-sided rib fractures. IMPRESSION: No active disease in the chest.
--- NOTE | 2023-10-26 10:12 | Hospitalist Progress Note ---
Date of Service October 26, 2023 Assessment & Plan (1) Intussusception, ileocecal: Plan: -Pre-op EKG and CXR reviewed. Patient is medically optimized for surgery -Consult general surgery - Pain management, DVT prophylaxis and bowel regiment per surgery recommendations -Diagnostic Laparoscopy, possible Hemicolectomy with Dr. Ramírez 10/26 (2) Small bowel obstruction: Plan: - See intussusception above (3) Hematochezia: Plan: -Decreasing -10/26 hgb 10.5 - Recheck AM (4) Falls: Plan: - Previously well documented in last PCP note in June - Suspect episode/fall 2 weeks ago was the same dizziness although with added concussion causing amnesia around the event -doubtful new pathology Given preceeding dizziness to events doubtful arrhythmia and does not need workup prior to surgery but could consider outpatient monitor - working diagnosis however is dehydration related to intermittent diarrhea and decreased oral intake causing increased vasovagal syncope. Sutures from prior fall removed while in the ER Plan Disposition - continued inpatient stay. Admission and Anticipated Discharge Date Admission Date: October 25, 2023 Subjective 1000 - Patient sitting up in bed, son present at bedside. Patient reports frustration as she has not seen the surgeon and is unsure what procedure she is going to be having and has questions for the surgeon. She reports she is having diffuse abdominal pain. ALso reports overall soreness from her fall two weeks ago, she has no recollection of this fall. Has been up to the bathroom, denies CP or SOB. Review of Systems Review of Systems: All systems reviewed & are unremarkable except as noted in Subjective Physical Exam Physical Exam: General: WN/WD, NAD, VS as above Resp: normal respiratory effort, lungs clear to auscultation CV: RRR, no murmur, no edema Abd: diffuse tenderness Extremities: Moves all extremities, no edema Neuro: A&O x3, Results & Data Results & Data Vital Signs (Past 12 Hours) Vital Signs Temp Pulse Resp BP Pulse Ox O2 Del Method 10/26/23 07:52 36.7 C 71 14 108/68 91 Room Air 10/26/23 07:50 36.7 C 71 14 108/68 91 Room Air 10/25/23 22:37 Room Air 10/25/23 22:37 36.5 C 86 16 120/72 96 Room Air Laboratory Results CBC and CMP reviewed Diagnostic Findings Abdomen/Pelvis CT 10/25/23 15:56 CT abd pelvis wo con CLINICAL HISTORY: diffuse ab pain, GIB TECHNIQUE: Helical axial images of the abdomen and pelvis were obtained. Automated dose lowering techniques and/or adjustment according to patient size were utilized for this exam. This exam was performed without intravenous contrast. CT DOSE: 676.46 mGy.cm COMPARISON: Comparison is made to CT abdomen pelvis 08/20/2014 FINDINGS: Lower chest: No acute abnormality. Liver: Unremarkable. No focal lesions are seen. Gallbladder and biliary tree: No calcified gallstones. Normal caliber wall. No intra- or extrahepatic biliary ductal dilation. Pancreas: Unremarkable, no focal lesions. Spleen: Unremarkable. Adrenals: Unremarkable. Kidneys and ureters: Unremarkable. Bladder: Unremarkable. Reproductive organs: Unremarkable. Bowel: Numerous dilated loops of small bowel measure up to 37 mm in diameter. There is a focus of intussusception at the ileocecal junction with an adjacent lipomatous lesion noted in the colon. A moderate hiatal hernia is seen. Diverticulosis without diverticulitis noted. The colon is moderately under distended. Lymph nodes Retroperitoneal: Unremarkable. Pelvic: Unremarkable. Mesenteric: Unremarkable. Peritoneum: Mild ascites is seen. Vessels: Atherosclerotic calcifications are seen. Abdominal wall: Unremarkable. Bones: Unremarkable. IMPRESSION: Small bowel obstruction is seen likely secondary to a enterocolic intussusception. A lipomatous lesion in the ascending colon, not seen in the prior exam, is being likely lead point. No evidence of bowel ischemia or perforation is seen. Additional findings are as above. ACT 112: Negative or not required by law. Electronically signed by: Jason Stewart M.D. 10/25/2023 5:02 PM Chest X-Ray 10/25/23 19:45 SINGLE VIEW CHEST CLINICAL HISTORY: Preoperative examination. FINDINGS: An AP, portable, upright chest radiograph is compared to study dated 03/22/2023. The cardiomediastinal silhouette is top normal for projection noting atherosclerotic calcification of the thoracic aorta. Chronic interstitial thickening is similar to previous. There is mild bibasilar scarring/atelectasis. The lungs and pleural spaces are otherwise clear. No pneumothorax is seen. The skeletal structures are osteopenic. There are chronic/healed left-sided rib fractures. IMPRESSION: No active disease in the chest. ACT 112: Negative or not required by law. Electronically signed by: Narciso Post M.D. 10/26/2023 8:07 AM PG Care Time/CCT Total # of Minutes Spent Total Time Spent with Patient: Total time spent is greater than 50% in coordination of care (as documented) at patient's floor/unit and/or counseling patient: Coding Level of Care Code 22388 SUB INP/OBS CARE 2/35MIN Diagnoses Intussusception, ileocecal K56.1 Small bowel obstruction K56.609 Hematochezia K92.1 Falls [id number].XXXA
[2023-10-26] MEDS ORDERED: BUPIVACAINE LIPOSOME 1.3% 266 MG/20 ML VIAL ONE (10:39)
[2023-10-26] MEDS ORDERED: BUPIVACAINE 0.5 % 5 MG/1 ML MPF 30ML VIAL ONE (10:39)
[2023-10-26] MEDS ORDERED: LACTATED RINGER'S 1,000 ML IV SCH (10:45)
[2023-10-26] MEDS ORDERED: ATROPINE SULFATE 0.1 MG/ML 10ML SYR IV PRN (11:09)
[2023-10-26] MEDS ORDERED: KETOROLAC 30 MG/ML VIAL IV PRN (11:09)
[2023-10-26] MEDS ORDERED: PROMETHAZINE HCL 6.25 MG in SODIUM CHLORIDE 0.9% 50 ML IV PRN (11:09)
[2023-10-26] MEDS ORDERED: cefOXitin 2,000 MG in DEXTROSE 5 % MINI-B 50 ML IV STA (11:33)
--- NOTE | 2023-10-26 11:39 | Surgery Progress Note ---
Date of Service October 26, 2023 Assessment & Plan (1) Intussusception, ileocecal: Plan: 78-year-old female with ileocolic intussusception likely secondary to benign lipoma, and resultant small bowel obstruction. Plan for robotic assisted laparoscopic partial colectomy, possible open Risk of the procedure were discussed to include but not limited to bleeding, infection, leak, conversion open, damage surrounding structures, need for future or more extensive surgery, and the risk of anesthesia Cefoxitin preop The diagnosis, details of the procedure and recovery, risks and benefits of surgery, and postoperative course were discussed with the patient and her son, all questions were answered, patient expressed understanding agrees to proceed with surgery as planned. (2) Colonic mass: (3) Small bowel obstruction: Admission and Anticipated Discharge Date Admission Date: October 25, 2023 Subjective 78-year-old female admitted with ileocolic intussusception likely secondary to benign lipoma at the ileocecal valve. Still having some crampy pain, no further bloody bowel movements. No nausea or vomiting. Physical Exam Constitutional: WD/WN, vitals as above Respiratory: normal respiratory effort, lungs clear to auscultation Cardiovascular: RRR, no murmur, no edema Gastrointestinal (Abdomen): Inspection/Auscultation: + abdominal surgical scar Percussion/Palpation: + abdomen tender (Mild tenderness to palpation in the right lower quadrant) and abdomen soft; no guarding and abdomen not rigid Results & Data Vital Signs (Past 12 Hours) Vital Signs Temp Pulse Pulse Resp BP BP Pulse Ox 10/26/23 10:36 36.7 C 58 L 20 107/65 94 10/26/23 07:52 36.7 C 71 14 108/68 91 10/26/23 07:50 36.7 C 71 14 108/68 91 10/26/23 07:20 O2 Del Method 10/26/23 10:36 Room Air 10/26/23 07:52 Room Air 10/26/23 07:50 Room Air 10/26/23 07:20 Room Air Laboratory Results Laboratory Results - last 24 hr 10/25/23 10/25/23 10/25/23 13:55 13:58 18:56 WBC 13.46 H RBC 4.22 Hgb 13.6 12.1 Hct 40.9 36.0 L MCV 96.9 MCH 32.2 MCHC 33.3 RDW Std Deviation 47.8 H RDW Coeff of Ortiz 13.5 Plt Count 604 H MPV 9.3 L Immature Gran % (Auto) Neut % (Auto) Lymph % (Auto) Starke % (Auto) Eos % (Auto) Baso % (Auto) Neut # (Auto) Lymph # (Auto) Starke # (Auto) Eos # (Auto) Baso # (Auto) Immature Gran # (Auto) PT 10.8 INR 1.0 APTT 28.2 PTT Ratio 1.0 Sodium 137 Potassium 3.9 Chloride 100 Carbon Dioxide 26 Anion Gap 11 BUN 12 Creatinine 0.80 Est Cr Clr Drug Dosing Not Reportable Est GFR ( Amer) 83.0 Est GFR (Non-Af Amer) 71.6 BUN/Creatinine Ratio 15.0 Glucose 84 POC Glucose Calcium 10.4 H Total Bilirubin 0.6 AST 22 ALT 21 Alkaline Phosphatase 139 H Troponin I High Sens 3.0 Total Protein 7.1 Albumin 4.5 Globulin 2.6 Albumin/Globulin Ratio 1.7 Carcinoembryonic Ag 1.7 Blood Type A Positive Antibody Screen NEGATIVE 10/26/23 10/26/23 10/26/23 01:36 01:42 09:52 WBC 6.73 RBC 3.29 L Hgb 10.5 L Hct 31.7 L MCV 96.4 MCH 31.9 MCHC 33.1 RDW Std Deviation 47.8 H RDW Coeff of Ortiz 13.6 Plt Count 447 H MPV 9.5 Immature Gran % (Auto) 0.7 Neut % (Auto) 43.1 Lymph % (Auto) 46.4 Starke % (Auto) 7.9 Eos % (Auto) 1.5 Baso % (Auto) 0.4 Neut # (Auto) 2.90 Lymph # (Auto) 3.12 Starke # (Auto) 0.53 Eos # (Auto) 0.10 Baso # (Auto) 0.03 Immature Gran # (Auto) 0.05 PT INR APTT PTT Ratio Sodium 138 Potassium 4.0 Chloride 107 Carbon Dioxide 23 Anion Gap 8 BUN 10 Creatinine 0.69 Est Cr Clr Drug Dosing 57.4 Est GFR ( Amer) 98.0 Est GFR (Non-Af Amer) 84.6 BUN/Creatinine Ratio 14.5 Glucose 64 L POC Glucose 148 H Calcium 8.8 Total Bilirubin 0.4 AST 15 ALT 14 Alkaline Phosphatase 108 H Troponin I High Sens Total Protein 5.3 L D Albumin 3.4 Globulin 1.9 L Albumin/Globulin Ratio 1.8 Carcinoembryonic Ag Blood Type Antibody Screen PG Care Time/CCT Total # of Minutes Spent Total Time Spent with Patient: Total time spent is greater than 50% in coordination of care (as documented) at patient's floor/unit and/or counseling patient: Coding Level of Care Code 36050 SUB INP/OBS CARE 2/35MIN Diagnoses Intussusception, ileocecal K56.1 Colonic mass K63.89 Small bowel obstruction K56.609
[2023-10-26] MEDS ORDERED: cefOXitin SOD 1,000 MG VIAL ONE (11:53)
[2023-10-26] MEDS ORDERED: ETOMIDATE 2 MG/ML 20 ML VIAL IV ONE (11:53)
--- NOTE | 2023-10-26 13:30 | Electrocardiogram Report ---
Test Reason : Blood Pressure : / mmHG Vent. Rate : 083 BPM Atrial Rate : 083 BPM P-R Int : 140 ms QRS Dur : 082 ms QT Int : 366 ms P-R-T Axes : 051 -08 044 degrees QTc Int : 430 ms Normal sinus rhythm Poor R wave progression, consider anterior ME vs. lead placement vs. LVH Abnormal ECG When compared with ECG of 28-JAN-2015 16:29, No significant change was found Confirmed by Hemanth Dowling ([id number]) on 10/26/2023 1:29:50 PM Referred By: REFERRED SELF Confirmed By:Hemanth Dowling
[2023-10-26] MEDS ORDERED: HYDROmorphone INJ 2 MG/ML SYR/VIAL ONE (13:54)
--- NOTE | 2023-10-26 15:29 | Post Operative Brief Note ---
PG Immediate Post Op with CF Date of Surgery October 26, 2023 Pre & Post Diagnosis Operation Date: 10/26/23 07:00 Pre-Op Diagnosis: (1) Intussusception, ileocecal (2) Colonic mass (3) Small bowel obstruction Post-Op Diagnosis: (1) Intussusception, ileocecal (2) Colonic mass (3) Small bowel obstruction I identified the patient and participated in the time-out.: Yes Procedure Operation Date: 10/26/23 07:00 Actual Procedures p Robotic Assisted Laparoscopic Hemicolectomy with ExCITE (Not Applicable) - Arjun Ramírez DO, FACS Surgeon Arjun Ramírez DO, GÓMEZ Builder Operator Cirilo Dalal Estimated Blood Loss 20 Findings Consistent with Post-Op Diagnosis Ileocolic intussusception, medial to lateral dissection performed, bowel exteriorized and [id number] functional end to end enterocolic anastomosis performed. Specimens Specimen Description: A. Ileocolic Intussusception Drains Eason Catheter (Inserted by Shanae Barr RN, prior to procedure start; clear, yellow urine returned) Anesthesia Type General Complications none Disposition Accompanied Patient To Recovery: No Disposition: Recovery Room
--- NOTE | 2023-10-26 15:40 | Operative Report ---
PG Post Operative Report Pre & Post Diagnosis Operation Date: 10/26/23 07:00 Pre-Op Diagnosis: (1) Intussusception, ileocecal (2) Colonic mass (3) Small bowel obstruction Post-Op Diagnosis: (1) Intussusception, ileocecal (2) Colonic mass (3) Small bowel obstruction I identified the patient and participated in the time-out.: Yes Procedure Operation Date: 10/26/23 07:00 Actual Procedures p Robotic Assisted Laparoscopic Hemicolectomy (Not Applicable) - Arjun Ramírez DO, GÓMEZ Surgeon Arjun Ramírez DO, GÓMEZ Dredge Pump Operator Cirilo Dalal Estimated Blood Loss 20 Findings Consistent with Post-Op Diagnosis Ileocolic intussusception, medial to lateral dissection performed, bowel exteriorized and [id number] functional end to end enterocolic anastomosis performed. Specimens Ileocolic intussusception Anesthesia Type General Complications none Disposition Accompanied Patient To Recovery: No Disposition: Recovery Room Indications 78-year-old female presented with signs and symptoms of ileocolic intussusception with benign lipoma as a lead point on imaging, plan for robotic assisted laparoscopic partial colectomy, possible open. The risks of the procedure were discussed, all questions were answered, and the patient agreed to proceed with surgery as planned. Description of Procedure The patient was properly identified, consented, and taken to the operating room where she was placed in the supine position. General endotracheal anesthesia was induced. SCDs and a safety belt were placed. Preoperative antibiotics were administered. A Eason catheter and NG tube were placed. The patient's abdomen was prepped and draped in the standard sterile fashion. Surgical timeout was performed and all parties were in agreement that this was the correct patient and procedure to be performed and we continued as planned. An incision was made in the left upper abdomen. The Veress needle was inserted and saline drop test confirmed entry into the abdomen. The abdomen was insufflated with carbon dioxide which the patient tolerated without incident. The Veress needle was removed and the abdomen was entered using the Optiview technique and a 5 mm camera with a 5 mm laparoscopic port. The introducer was removed and the camera reinserted. No damage from initial trocar placement or Veress needle placement was identified. The small bowel was dilated and there was some reactive fluid in the pelvis. There were no significant adhesions and there was evidence of intussusception of the ileum into the colon. There is no evidence of perforation. 8 mm robotic ports were then placed in the left lower quadrant, left lateral abdomen, and in the right upper quadrant. A 12 mm robotic port was placed in the right lateral abdomen. The patient was placed in the Trendelenburg position and rotated towards the left. The small bowel was swept out of the way exposing the ileocolic intussusception. The robot was docked, and the camera and instruments were inserted. The cecum was then grasped and elevated towards the anterior abdominal wall revealing the ileocolic vascular pedicle. The peritoneum just underneath this was incised with cautery scissors. Blunt dissection was then used to isolate the vessels. The vessels were circumferentially dissected. A white loaded robot stapler was then used to divide the ileocolic vein and artery at their base. Hemostasis appeared excellent. We then continued the dissection from a medial to lateral approach dissecting the retroperitoneal structures posteriorly away from the small bowel and colonic mesentery. We continued this dissection until we approached the lesser sac and continued laterally until the colon was nearly free of all adhesions except for the white line of Toldt. The right ureter was identified and preserved. The right colic artery was also encountered and circumferentially dissected and divi ded with the stapler. Hemostasis appeared excellent. The vessel sealer was then utilized to divide the remainder of the mesentery to an area along the ascending colon and to the distal ileum. Once the medial to lateral dissection was completed, we then performed a lateral dissection using the robotic vessel sealer to take down the white line of Toldt along the right colon. The distal ileum was freed from its peritoneal attachments. Due to the dilated small bowel, I did not feel that an intraperitoneal anastomosis would be possible. At this point the cecum appeared to reach easily to the anterior abdominal wall, and we decided to exteriorize the colon. The cecum was grasped with a laparoscopic grasper through the higher level teaching assistant port. The robot was undocked. A transverse incision was made just to the right of the umbilicus with a colon reach most easily. The anterior fascia was divided and the muscle was bluntly , and the posterior fascia was incised. The wound protector was placed within the wound after the fascia was opened and then the colon was exteriorized. The colon reached easily as did the small bowel. The small bowel was divided using a purple loaded endoscopic SUNITA stapler. The colon was then divided using a purple loaded endoscopic SUNITA stapler in the region of the ascending colon. The specimen was excised and passed off the table. The ileum appeared to intussuscept approximately 10 to 15 cm into the colon. We then proceeded to create a [id number] functional end-to-end ileocolic anastomosis. Towels were laid around the incision. The corners of the staple lines on the antimesenteric border of both the ileum and colon were excised creating enterotomies. A 60 mm purple loaded stapler was placed in each enterotomy and fired x2 to create the anastomosis. The common enterotomy was then closed using sequential firings of a purple loaded stapler. The staple line was then reinforced with 3-0 silk Lembert sutures. There was no evidence of a leak, and the anastomosis appeared patent. The mesenteric defect was not closed. Hemostasis appeared to be good and the anastomosis appeared to have no twist in it. The anastomosis was allowed to drop back into the abdomen. Wound protector was clamped and the abdomen was reentered laparoscopically and hemostasis appeared good. The anastomosis appeared to lay well on the right side of the abdomen and appeared to have good blood supply. Laparoscopy was ceased and the wound protector was removed. The fascia and skin of the right lower quadrant incision was injected with Exparel mixed with 0.5% Marcaine. The posterior fascia was closed with a running 0 PDS suture and the wound was irrigated. The anterior fascia was closed with a running 0 PDS suture. The wound was irrigated and the incision was then closed with interrupted 3-0 Vicryl deep dermal sutures followed by 4-0 Monocryl running subcuticular suture. The port site incisions were closed with 4 Monocryl subcuticular sutures. Dermabond was placed over all the wounds. The patient was extubated in the operating room and taken to the PACU where she recovered without apparent incident. The NG tube and Eason catheter remained in place. All sponge, instrument, and needle counts were correct. The patient tolerated the procedure well. The colon specimen was sent to Pathology. The nurse practitioner was present and scrubbed for the entirety of the case. She was critical in positioning the patient, prepping and draping, retraction and exposure, driving the laparoscope, resection of the specimen and creation of the anastomosis, closure the incisions, and placement of the dressings. I attest to the content of the Intraoperative Record and any orders documented therein. Any exceptions are noted below.
[2023-10-26] MEDS: HYDROmorphone INJ 1 MG/ML SYRINGE IV PRN ×4 (15:55→16:10)
--- NOTE | 2023-10-26 16:47 | Anesthesiology Progress Note ---
Date of Service October 26, 2023 Anesthesia Post Procedure Vital Signs Vital Signs: Temp Pulse Pulse Pulse Resp BP BP 10/26/23 16:40 62 19 114/55 L 10/26/23 16:30 36.5 C 84 18 116/57 L 10/26/23 16:20 71 12 107/57 L 10/26/23 16:10 69 13 114/63 10/26/23 16:00 65 14 93/59 L 10/26/23 15:50 76 14 113/66 10/26/23 15:41 36.2 C L 68 12 93/56 L 10/26/23 10:36 36.7 C 58 L 20 107/65 10/26/23 07:52 36.7 C 71 14 10/26/23 07:50 36.7 C 71 14 10/26/23 07:20 10/25/23 22:37 10/25/23 22:37 36.5 C 86 16 10/25/23 19:30 85 16 111/69 10/25/23 19:21 76 10/25/23 17:26 76 19 10/25/23 17:26 76 BP Pulse Ox O2 Del Method O2 Flow Rate 10/26/23 16:40 96 Oxymask 4 10/26/23 16:30 98 Oxymask 4 10/26/23 16:20 100 Oxymask 4 10/26/23 16:10 99 Oxymask 4 10/26/23 16:00 98 Oxymask 4 10/26/23 15:50 95 Oxymask 4 10/26/23 15:41 99 Oxymask 6 10/26/23 10:36 94 Room Air 10/26/23 07:52 108/68 91 Room Air 10/26/23 07:50 108/68 91 Room Air 10/26/23 07:20 Room Air 10/25/23 22:37 Room Air 10/25/23 22:37 120/72 96 Room Air 10/25/23 19:30 94 10/25/23 19:21 10/25/23 17:26 133/69 96 Room Air 10/25/23 17:26 96 Room Air Pain Intensity Abdomen: Pain Intensity: 5 Transfer of Care Handoff Completed per policy Notes Mental Status: alert / awake / arousable and participated in evaluation Patient Amnestic to Procedure: Yes Nausea / Vomiting: adequately controlled Pain: adequately controlled Airway Patency, RR, SpO2: stable & adequate BP & HR: stable & adequate Hydration State: stable & adequate Anesthetic Complications: no major complications apparent
[2023-10-26] MEDS: ACETAMINOPHEN 1,000 MG/100 ML VIAL IV SCH (17:25)
[2023-10-26] MEDS: cefOXitin 2,000 MG in DEXTROSE 5 % MINI-B 50 ML IV SCH (18:10)
[2023-10-26] MEDS: CHLORASEPTIC 1.4% SOLN 180 ML BTL MT PRN (22:56)
[2023-10-27] MEDS: cefOXitin 2,000 MG in DEXTROSE 5 % MINI-B 50 ML IV SCH ×3 (00:05→11:33)
[2023-10-27] MEDS: ACETAMINOPHEN 1,000 MG/100 ML VIAL IV SCH ×2 (00:05→07:27)
[2023-10-27] MEDS: MoRPHine SULFATE 4 MG/ML 1 ML CARP\\VIAL IV PRN (03:28)
[2023-10-27] MEDS: LACTATED RINGER'S 1,000 ML IV SCH ×3 (06:21→19:20)
[2023-10-27 07:47] LABS: Hematocrit (blood only) 29.3 % (37.0-47.0); Hemoglobin 9.6 g/dl (12.0-16.0); Mean Corpuscular Hemoglobin 32.3 pg (25.0-34.0); Mean Corpuscular Hgb Conc 32.8 g/dL (32.0-36.0); Mean Corpuscular Volume 98.7 fL (80.0-100.0); Mean Platelet Volume 9.4 fL (9.4-12.4); Platelet Count 424 K/uL (130-400); RDW Coefficient of Variation 13.3 % (11.5-14.5); RDW Standard Deviation 48.2 fL (36.4-46.3); Red Blood Count 2.97 M/uL (4.20-5.40); White Blood Count 5.36 K/ul (4.8-10.8)
[2023-10-27 08:23] LABS: Albumin Globulin Ratio 1.6 (0.9-2); Albumin Level 3.1 gm/dl (3.4-5.0); BUN Creatinine Ratio 11.3 (10-20); Bilirubin,Total 0.8 mg/dl (0.2-1.0); Calcium 8.3 mg/dl (8.6-10.3); Creatinine Clr Calc Pharmacy 49.5 ml/min; Est GFR (Non-African American) 71.6 ml/min; Globulin 1.9 gm/dl (2.5-4.0); Potassium 4.1 mmol/L (3.5-5.1)
[2023-10-27] MEDS: CHLORASEPTIC 1.4% SOLN 180 ML BTL MT PRN (08:27)
[2023-10-27] MEDS ORDERED: oxyCODONE HCL IR 5 MG TAB (IMMEDIATE RELEASE) PO PRN (10:02)
--- NOTE | 2023-10-27 10:08 | Surgery Progress Note ---
Date of Service October 27, 2023 Assessment & Plan (1) History of right hemicolectomy: Plan: POD #1 robotic assisted right hemicolectomy, overall doing well Start Lovenox Start clear liquids Add oral pain medication, scheduled Toradol, scheduled oral Tylenol, DC IV Tylenol DC Eason Encourage I-S, ambulation, out of bed to chair I will be out of town for the next few days, Dr. Pham covering in my absence Admission and Anticipated Discharge Date Admission Date: October 25, 2023 Subjective POD #1 robotic assisted right hemicolectomy for intussusception. NG tube fell out overnight. Sore at abdominal systems, worse on the extraction site. Has not passed flatus, feels slightly bloated with no nausea. Physical Exam Constitutional: WD/WN, vitals as above Gastrointestinal (Abdomen): Inspection/Auscultation: + abdominal surgical incision (No infection) Percussion/Palpation: + abdomen tender (Appropriate tender to palpate); no guarding, abdomen not rigid and no hernia Results & Data Vital Signs (Past 12 Hours) Vital Signs Temp Pulse Pulse Resp BP Pulse Ox O2 Del Method 10/27/23 09:00 Oxymask 10/27/23 08:07 37 C 98 H 17 120/58 L 98 Oxymask 10/27/23 07:59 96 Oxymask 10/27/23 05:58 36.4 C L 85 20 110/67 96 Oxymask 10/27/23 01:30 37.0 C 80 16 106/66 93 Room Air O2 Flow Rate 10/27/23 09:00 3 10/27/23 08:07 4 10/27/23 07:59 4 10/27/23 05:58 4 10/27/23 01:30 Laboratory Results Laboratory Results - last 24 hr 10/27/23 06:21 WBC 5.36 RBC 2.97 L Hgb 9.6 L Hct 29.3 L MCV 98.7 MCH 32.3 MCHC 32.8 RDW Std Deviation 48.2 H RDW Coeff of Ortiz 13.3 Plt Count 424 H MPV 9.4 Sodium 138 Potassium 4.1 Chloride 107 Carbon Dioxide 25 Anion Gap 6 BUN 9 Creatinine 0.80 Est Cr Clr Drug Dosing 49.5 Est GFR ( Amer) 83.0 Est GFR (Non-Af Amer) 71.6 BUN/Creatinine Ratio 11.3 Glucose 111 H Calcium 8.3 L Total Bilirubin 0.8 AST 14 ALT 11 Alkaline Phosphatase 97 Total Protein 5.0 L Albumin 3.1 L Globulin 1.9 L Albumin/Globulin Ratio 1.6 PG Care Time/CCT Total # of Minutes Spent Total Time Spent with Patient: Total time spent is greater than 50% in coordination of care (as documented) at patient's floor/unit and/or counseling patient: Coding Level of Care Code 07033 Post Operative Follow-Up Diagnoses History of right hemicolectomy Z90.49
[2023-10-27] MEDS: ACETAMINOPHEN 500 MG TAB PO SCH ×2 (10:19→17:59)
[2023-10-27] MEDS: KETOROLAC TROMETHAMINE 15 MG/ML VIAL IV SCH ×3 (10:19→21:31)
[2023-10-27] MEDS: ENOXAPARIN INJ 40 MG/0.4 ML SYR SQ SCH (10:45)
[2023-10-27] MEDS: ONDANSETRON INJ 2 MG/ML 2 ML VIAL IV PRN ×2 (10:47→16:03)
--- NOTE | 2023-10-27 14:00 | Hospitalist Progress Note ---
Date of Service October 27, 2023 Assessment & Plan (1) Intussusception, ileocecal: Plan: -Consult general surgery - Pain management, DVT prophylaxis and bowel regiment per surgery recommendations -Scheduled Toradaol and Tylenol. - Lovenox - Advanced to clear liquids today but has not been tolerating well. made aware by RN -Diagnostic Laparoscopy, possible Hemicolectomy with Dr. Ramírez 10/26 - NG tube was removed after being called in the mouth, but patient currently unable to tolerate clear liquids without nausea. will defer replacement to surgery team - Hgb: 9.6, likely acute blood loss anemia --> recheck AM (2) Small bowel obstruction: Plan: - See intussusception above (3) Hematochezia: Plan: No bowel movements since surgery (4) Falls: Plan: - Previously well documented in last PCP note in June - Suspect episode/fall 2 weeks ago was the same dizziness although with added concussion causing amnesia around the event -doubtful new pathology - Given preceding dizziness to events doubtful arrhythmia could consider outp atient monitor - however suspect dehydration related to intermittent diarrhea and decreased oral intake causing increased vasovagal syncope. - Sutures from prior fall removed while in the ER (5) Gout: Plan: Resume home allopurinol Plan Disposition - continued inpatient stay. Admission and Anticipated Discharge Date Admission Date: October 25, 2023 Subjective patient seen sitting in bed, friend at bedside. Lunch tray in front of her, states she was not able to eat very much because it made her nauseous. has not vomited. Is not passing gas. otherwise, reports that pain is well-controlled and significantly decreased since before surgery. does report that ribs, especially on the right side are still sore from fall 2 weeks ago. Denies any chest pain or shortness of breath. Patient does not report any dizziness to me, however RN notified me that patient is getting quite dizzy with position changes. However patient has been very hesistant to get out of bed or to the chair like Dr. Ramírez recommended. Review of Systems Review of Systems: All systems reviewed & are unremarkable except as noted in Subjective Physical Exam Physical Exam: General: WN/WD, NAD, VS as above HEENT: site of staple removal right posterior head, healing appropriately no signs of infection Resp: normal respiratory effort, lungs clear to auscultation CV: RRR, no murmur, no edema Abd: mild tenderness RUQ, bowel sounds in all 4 quadrants Extremities: Moves all extremities, no edema Neuro: A&O x3, Results & Data Results & Data Vital Signs (Past 12 Hours) Vital Signs Temp Pulse Pulse Resp BP Pulse Ox O2 Del Method 10/27/23 13:32 97 Nasal Cannula 10/27/23 13:05 37.1 C 81 18 100/54 L 96 Nasal Cannula 10/27/23 09:00 Oxymask 10/27/23 08:07 37 C 98 H 17 120/58 L 98 Oxymask 10/27/23 07:59 96 Oxymask 10/27/23 05:58 36.4 C L 85 20 110/67 96 Oxymask O2 Flow Rate 10/27/23 13:32 1 10/27/23 13:05 2 10/27/23 09:00 3 10/27/23 08:07 4 10/27/23 07:59 4 10/27/23 05:58 4 Laboratory Results CBC and chemistry reviewed PG Care Time/CCT Total # of Minutes Spent Total Time Spent with Patient: Total time spent is greater than 50% in coordination of care (as documented) at patient's floor/unit and/or counseling patient: Coding Level of Care Code 25006 SUB INP/OBS CARE 2/35MIN Diagnoses Intussusception, ileocecal K56.1 Small bowel obstruction K56.609 Hematochezia K92.1 Falls W19.XXXA Gout M10.9
[2023-10-27] MEDS: oxyCODONE HCL IR 5 MG TAB (IMMEDIATE RELEASE) PO PRN (19:23)
[2023-10-28] MEDS: oxyCODONE HCL IR 5 MG TAB (IMMEDIATE RELEASE) PO PRN ×3 (00:30→20:47)
[2023-10-28] MEDS: ACETAMINOPHEN 500 MG TAB PO SCH ×3 (02:22→18:49)
[2023-10-28] MEDS: LACTATED RINGER'S 1,000 ML IV SCH ×3 (02:22→20:47)
[2023-10-28] MEDS: KETOROLAC TROMETHAMINE 15 MG/ML VIAL IV SCH ×4 (05:24→22:27)
[2023-10-28 06:09] LABS: Hematocrit (blood only) 26.7 % (37.0-47.0); Hemoglobin 8.5 g/dl (12.0-16.0); Mean Corpuscular Hemoglobin 31.6 pg (25.0-34.0); Mean Corpuscular Hgb Conc 31.8 g/dL (32.0-36.0); Mean Corpuscular Volume 99.3 fL (80.0-100.0); Mean Platelet Volume 9.2 fL (9.4-12.4); Platelet Count 357 K/uL (130-400); RDW Coefficient of Variation 13.4 % (11.5-14.5); RDW Standard Deviation 47.7 fL (36.4-46.3); Red Blood Count 2.69 M/uL (4.20-5.40); White Blood Count 6.41 K/ul (4.8-10.8)
[2023-10-28 06:23] LABS: BUN Creatinine Ratio 13.6 (10-20); Calcium 8.3 mg/dl (8.6-10.3); Est GFR (African American) 99.5 ml/min; Est GFR (Non-African American) 85.8 ml/min; Potassium 3.7 mmol/L (3.5-5.1)
[2023-10-28] MEDS ORDERED: POTASSIUM CHLORIDE CRTAB 20 MEQ TABCR PO STA (07:17)
--- NOTE | 2023-10-28 08:04 | Surgery Progress Note ---
Date of Service October 28, 2023 Assessment & Plan (1) History of right hemicolectomy: Plan: POD 2 Patient resting in bed Reports pain 9/10 mostly on right side was switched to oral pain meds yesterday after medication pain goes down to a 8 Denies BM, Flatus, Cp , SOB Reports some chills and sweats VSS, WBC wnl K+ 3.7 ordered 40MEQ po to keep K+ above 4 On clear liquids, has some nausea with this but no vomiting, loss of appetite, +BS Encourage OOB to chair walking in room Continue Po pain meds will continue to monitor Admission and Anticipated Discharge Date Admission Date: October 25, 2023 Supervising Physician Co-Signing Physician Notes I personally saw and evaluated the patient with Cirilo LYNCH and agree with the assessment and plan. 78-year-old female status post laparoscopic ileocecectomy for ileocecal intussusception, postoperative day 2 Her labs are all within normal limits She is having some significant nausea and bloating with clears, will back her down to n.p.o. She is finished with her perioperative antibiotics Continue to encourage ambulation and I-S Lovenox for DVT prophylaxis Subjective Patient resting in bed Reports pain 9/10 mostly on right side was switched to oral pain meds yesterday after medication pain goes down to a 8 Denies BM, Flatus, Cp , SOB Reports some chills and sweats Review of Systems Constitutional: + chills and + sweats; no fever Eyes: + corrective lenses Respiratory: no dyspnea Cardiovascular: no chest pain Gastrointestinal: + abdominal pain and + nausea; no vomiti ng no appetite Genitourinary: no problem reported Neurologic: no problem reported Psychiatric: no problem reported Physical Exam Physical Exam: awake alert Constitutional: cooperative and comfortable; no acute distress ENMT: external ear and nose normal, oropharynx normal Neck: trachea midline, no thyromegaly Respiratory: normal respiratory effort, lungs clear to auscultation normal respiratory effort and able to speak in complete sentences; no respiratory distress Auscultation: lungs clear to auscultation bilaterally Cardiovascular: Rate/Rhythm: regular rate and regular rhythm Heart Sounds: no murmur Gastrointestinal (Abdomen): Inspection/Auscultation: + abdomen distended (mild) and + abdominal surgical incision (derma otero CDI ) Percussion/Palpation: + abdomen tender and abdomen soft Psychiatric: Orientation: alert, oriented x 3 and cooperative Results & Data Vital Signs (Past 12 Hours) Vital Signs Temp Pulse Resp BP BP Pulse Ox O2 Del Method 10/28/23 07:31 98.2 F 74 18 104/63 94 Room Air 10/28/23 07:08 98.1 F 80 16 105/65 93 Room Air PG Care Time/CCT Total # of Minutes Spent Total Time Spent with Patient: Total time spent is greater than 50% in coordination of care (as documented) at patient's floor/unit and/or counseling patient: Coding Level of Care Code 67420 Post Operative Follow-Up Diagnoses History of right hemicolectomy Z90.49
[2023-10-28] MEDS: ONDANSETRON INJ 2 MG/ML 2 ML VIAL IV PRN (08:26)
[2023-10-28] MEDS: allopurinoL 300 MG TAB PO SCH (08:52)
[2023-10-28] MEDS: ENOXAPARIN INJ 40 MG/0.4 ML SYR SQ SCH (08:53)
--- NOTE | 2023-10-28 12:44 | Hospitalist Progress Note ---
Date of Service October 28, 2023 Assessment & Plan (1) Intussusception, ileocecal: Plan: -Diagnostic Laparoscopy, possible Hemicolectomy with Dr. Ramírez 10/26 - Pain management, DVT prophylaxis and bowel regiment per surgery recommendation - Diet back to NPO after progressive nausea - Continue IVF until tolerating diet consistently - Encouraged ambulation/up to chair and IS - NG tube was removed after being coiled in the mouth, but patient currently unable to tolerate clear liquids without nausea. will defer replacement to surgery team - Hgb: downtrending to 8.5, likely acute blood loss anemia --> recheck AM (2) Small bowel obstruction: Plan: - See intussusception above (3) Hematochezia: Plan: No bowel movements since surgery (4) Falls: Plan: - Previously well documented in last PCP note in June - Suspect episode/fall 2 weeks ago was the same dizziness although with added concussion causing amnesia around the event -doubtful new pathology - Given preceding dizziness to events doubtful arrhythmia could consider outpatient monitor - however suspect dehydration related to intermittent diarrhea and decreased oral intake causing increased vasovagal syncope. - Sutures from prior fall removed while in the ER, site healing appropriately (5) Gout: Plan: Resume home allopurinol (6) Dizziness: Plan: -Contributing to halls as above - Does endorse some dizziness while getting up to the bathroom -Likely worsened by decreased oral intake (7) Lumbar disc disease: Plan: Chronic -heat or ice pack for patient comfort Plan Disposition - continued inpatient stay. Admission and Anticipated Discharge Date Admission Date: October 25, 2023 Supervising Physician Co-Signing Physician Notes Attending Attestation - Chart reviewed, care plan d/w KATINA Mcfadden. I agree w/ the monreal components of her documentation. Tommy Bryant MD Subjective Patient seen sitting in bed reading on Estephania, reports overall feeling miserable. States her pain is a 9/10 and the oral pain medication is not helping like the IV did. Nauseous everytime she eats anything, espeiclly the potassium pills this morning. Has had dizziness when up to the bathroom. Has not passed any gas. Review of Systems Review of Systems: All systems reviewed & are unremarkable except as noted in Subjective Physical Exam Physical Exam: General: WN/WD, NAD, VS as above Resp: normal respiratory effort, lungs clear to auscultation CV: RRR, no murmur, no edema Abd: mild tenderness RUQ, bowel sounds in all 4 quadrants Extremities: Moves all extremities, no edema Neuro: A&O x3, Results & Data Results & Data Vital Signs (Past 12 Hours) Vital Signs Temp Pulse Resp BP BP Pulse Ox O2 Del Method 10/28/23 08:57 Room Air 10/28/23 07:31 36.8 C 74 18 104/63 94 Room Air 10/28/23 07:08 36.7 C 80 16 105/65 93 Room Air Laboratory Results CBC and BMP reviewed. PG Care Time/CCT Total # of Minutes Spent Total Time Spent with Patient: Total time spent is greater than 50% in coordination of care (as documented) at patient's floor/unit and/or counseling patient: Coding Level of Care Code 61547 SUB INP/OBS CARE 2/35MIN Diagnoses Intussusception, ileocecal K56.1 Small bowel obstruction K56.609 Hematochezia K92.1 Falls W19.XXXA Gout M10.9 Dizziness R42 Lumbar disc disease M51.9
[2023-10-28] MEDS ORDERED: diphenhydrAMINE Capsule 25 MG CAP PO ONE (22:55)
[2023-10-28] MEDS ORDERED: ACETAMINOPHEN 500 MG TAB PO STA (22:55)
[2023-10-29] MEDS: ACETAMINOPHEN 500 MG TAB PO SCH ×3 (02:32→18:11)
[2023-10-29] MEDS: LACTATED RINGER'S 1,000 ML IV SCH ×3 (04:32→20:16)
[2023-10-29] MEDS: KETOROLAC TROMETHAMINE 15 MG/ML VIAL IV SCH ×4 (04:33→22:17)
[2023-10-29 07:01] LABS: Hematocrit (blood only) 27.6 % (37.0-47.0); Hemoglobin 8.8 g/dl (12.0-16.0); Mean Corpuscular Hgb Conc 31.9 g/dL (32.0-36.0); Mean Corpuscular Volume 100.4 fL (80.0-100.0); Mean Platelet Volume 9.1 fL (9.4-12.4); Platelet Count 395 K/uL (130-400); RDW Coefficient of Variation 13.3 % (11.5-14.5); RDW Standard Deviation 49.2 fL (36.4-46.3); Red Blood Count 2.75 M/uL (4.20-5.40); White Blood Count 5.58 K/ul (4.8-10.8)
[2023-10-29] MEDS: ENOXAPARIN INJ 40 MG/0.4 ML SYR SQ SCH (08:10)
[2023-10-29] MEDS: allopurinoL 300 MG TAB PO SCH (08:10)
[2023-10-29 09:11] LABS: BUN Creatinine Ratio 18.2 (10-20); Est GFR (African American) 105.6 ml/min; Est GFR (Non-African American) 91.1 ml/min
--- NOTE | 2023-10-29 10:14 | Surgery Progress Note ---
Date of Service October 29, 2023 Assessment & Plan (1) History of right hemicolectomy: Plan: She is improved Start clear liquids encourage ambulation and IS await more meaningful return of bowel function Admission and Anticipated Discharge Date Admission Date: October 25, 2023 Subjective Pt seen and examined. Has starting passing some flatus. Pain improved. Afebrile. Physical Exam Constitutional: WD/WN, vitals as above Gastrointestinal (Abdomen): soft, appropriately TTP, incisions with dermabond, c/d/i Results & Data Vital Signs (Past 12 Hours) Vital Signs Temp Pulse Resp BP Pulse Ox O2 Del Method 10/29/23 07:20 36.8 C 73 16 105/65 91 Room Air PG Care Time/CCT Total # of Minutes Spent Total Time Spent with Patient: Total time spent is greater than 50% in coordination of care (as documented) at patient's floor/unit and/or counseling patient: Coding Level of Care Code 94803 Post Operative Follow-Up Diagnoses History of right hemicolectomy Z90.49
--- NOTE | 2023-10-29 13:23 | Hospitalist Progress Note ---
Date of Service October 29, 2023 Assessment & Plan (1) Intussusception, ileocecal: Plan: -Diagnostic Laparoscopy, possible Hemicolectomy with Dr. Ramírez 10/26 - Pain management, DVT prophylaxis and bowel regiment per surgery recommendation - Diet advanced to clear liquids today - Continue IVF until tolerating diet consistently, especially with pt dizziness - Encouraged ambulation/up to chair and IS (2) Small bowel obstruction: Plan: - See intussusception above (3) Acute blood loss anemia: Plan: acute blood loss anemia -stable -recheck hgb if any further blood in stool (4) Hematochezia: Plan: No bowel movements since surgery (5) Falls: Plan: - Previously well documented in last PCP note in June - Suspect episode/fall 2 weeks ago was the same dizziness although with added concussion causing amnesia around the event -doubtful new pathology - Given preceding dizziness to events doubtful arrhythmia could consider outpatient monitor - however suspect dehydration related to intermittent diarrhea and decreased oral intake causing increased vasovagal syncope. - Sutures from prior fall removed while in the ER, site healing appropriately (6) Gout: Plan: Resume home allopurinol (7) Dizziness: Plan: -Contributing to falls as above -Likely worsened by decreased oral intake, will continue IVF -Also exacerbated by nausea per pt (8) Lumbar disc disease: Plan: Chronic -heat or ice pack for patient comfort Plan Disposition - continued inpatient stay. Admission and Anticipated Discharge Date Admission Date: October 25, 2023 Supervising Physician Co-Signing Physician Notes Attending Attestation - Chart reviewed, care plan d/w KATINA Mcfadden. I agree w/ the monreal components of her documentation. Tommy Bryant MD Subjective Patient seen sitting in bed. Just walked with therapy, states she is sore all over, especially from her prior injuries from her fall. Does report feeling dizz y this morning when her blood sugar was low. Had some dizziness with ambulation, but states dizziness and nausea go hand in hand for her. She was advanced to clear liquids again today, and tolerated apple juice without issue but then the broth made her nauseous. States that when she is dizzy the room does not spin, she does not feel like she is going to pass out and she does not have any vision changes. D Denies CP or SOB. has been using IS. Review of Systems Review of Systems: All systems reviewed & are unremarkable except as noted in Subjective Physical Exam Physical Exam: General: WN/WD, NAD, VS as above Resp: normal respiratory effort, lungs clear to auscultation CV: RRR, no murmur, no edema Abd: mild tenderness RUQ, bowel sounds in all 4 quadrants Extremities: Moves all extremities, no edema Neuro: A&O x3, Results & Data Results & Data Vital Signs (Past 12 Hours) Vital Signs Temp Pulse Resp BP Pulse Ox O2 Del Method 10/29/23 07:20 36.8 C 73 16 105/65 91 Room Air Laboratory Results CBC and chemistry reviewed PG Care Time/CCT Total # of Minutes Spent Total Time Spent with Patient: Total time spent is greater than 50% in coordination of care (as documented) at patient's floor/unit and/or counseling patient: Coding Level of Care Code 11515 SUB INP/OBS CARE 3/50MIN Diagnoses Intussusception, ileocecal K56.1 Small bowel obstruction K56.609 Acute blood loss anemia D62 Hematochezia K92.1 Falls W19.XXXA Gout M10.9 Dizziness R42 Lumbar disc disease M51.9
[2023-10-29] MEDS: ONDANSETRON INJ 2 MG/ML 2 ML VIAL IV PRN (17:18)
[2023-10-29] MEDS: oxyCODONE HCL IR 5 MG TAB (IMMEDIATE RELEASE) PO PRN (22:36)
[2023-10-30] MEDS: ACETAMINOPHEN 500 MG TAB PO SCH ×3 (01:31→17:10)
[2023-10-30] MEDS: KETOROLAC TROMETHAMINE 15 MG/ML VIAL IV SCH ×4 (03:33→21:57)
[2023-10-30] MEDS: LACTATED RINGER'S 1,000 ML IV SCH ×2 (03:33→11:33)
[2023-10-30] MEDS: allopurinoL 300 MG TAB PO SCH (08:48)
[2023-10-30] MEDS: ENOXAPARIN INJ 40 MG/0.4 ML SYR SQ SCH (08:48)
--- NOTE | 2023-10-30 12:10 | Surgery Progress Note ---
Date of Service October 30, 2023 Assessment & Plan (1) History of right hemicolectomy: Plan: Advance diet as tolerated encourage ambulation and IS DVT prophylaxis with SCD boots and Lovenox Admission and Anticipated Discharge Date Admission Date: October 25, 2023 Subjective Feeling okay today, however has had multiple episodes of diarrhea overnight. No fevers or chills. Physical Exam Physical Exam: AFVSS NAD, A&O x 3 Abdomen: Soft, appropriately tender right lower quadrant Incision: C/D/I; Dermabond in place Results & Data Vital Signs (Past 12 Hours) Vital Signs Temp Pulse Resp BP Pulse Ox O2 Del Method 10/30/23 08:08 36.7 C 77 16 121/77 93 Room Air Laboratory Results 10/30/23 Range/Units 01:30 Stl C. diff Tox B Gene Negative Cdiff Gene (Neg)
--- NOTE | 2023-10-30 14:00 | Hospitalist Progress Note ---
Date of Service October 30, 2023 Assessment & Plan (1) Intussusception, ileocecal: Plan: -Diagnostic Laparoscopy, possible Hemicolectomy with Dr. Ramírez 10/26 - Pain management, DVT prophylaxis and bowel regiment per surgery recommendation - Diet advanced to full liquids today - discontinue IVF - Encouraged ambulation/up to chair and IS - Diarrhea likely related to recent surgery - C.diff testing negative (2) Small bowel obstruction: Plan: - See intussusception above (3) Acute blood loss anemia: Plan: acute blood loss anemia -stable -recheck hgb if any further blood in stool (4) Hematochezia: Plan: No bowel movements since surgery (5) Falls: Plan: - Previously well documented in last PCP note in June - Suspect episode/fall 2 weeks ago was the same dizziness although with added concussion causing amnesia around the event -doubtful new pathology - Given preceding dizziness to events doubtful arrhythmia could consider outpatient monitor - however suspect dehydration related to intermittent diarrhea and decreased oral intake causing increased vasovagal syncope. - Sutures from prior fall removed while in the ER, site healing appropriately (6) Gout: Plan: Resume home allopurinol (7) Dizziness: Plan: -Contributing to falls as above -Improving (8) Lumbar disc disease: Plan: Chronic -heat or ice pack for patient comfort Plan Disposition - continued inpatient stay. Admission and Anticipated Discharge Date Admission Date: October 25, 2023 Supervising Physician Co-Signing Physician Notes Attending Attestation - Chart reviewed, care plan d/w KATINA Mcfadden. I agree w/ the monreal components of her documentation. Tommy Bryant MD Subjective Patient sitting up in bed, son at bedside. patient feeling better today. Was advanced to full liquid diet, and was able to tolerate cream of wheat and yogurt without nausea. appetite returning as she is asking for pudding. Does report multiple episodes of diarrhea overnight, states she was up every 6 to 7 minutes. C. difficile testing was negative. Denies any blood in her stool. Reports that her dizziness has improved as well. also feels like her abdominal pain is improving. Denies chest pain or shortness of breath. Patient states that if she needs a Walker or shower chair, or any assistive devices for home she will need those to be ordered for her. She does not have anything of the sort. Review of Systems Review of Systems: All systems reviewed & are unremarkable except as noted in Subjective Physical Exam Physical Exam: General: WN/WD, look much better compared to prior days Resp: normal respiratory effort, lungs clear to auscultation CV: RRR, no murmur, no edema Abd: nontender, + bowel sounds Extremities: Moves all extremities, no edema Neuro: A&O x3, Results & Data Results & Data Vital Signs (Past 12 Hours) Vital Signs Temp Pulse Resp BP Pulse Ox O2 Del Method 10/30/23 08:08 36.7 C 77 16 121/77 93 Room Air PG Care Time/CCT Total # of Minutes Spent Total Time Spent with Patient: Total time spent is greater than 50% in coordination of care (as documented) at patient's floor/unit and/or counseling patient: Coding Level of Care Code 44934 SUB INP/OBS CARE 2/35MIN Diagnoses Intussusception, ileocecal K56.1 Small bowel obstruction K56.609 Acute blood loss anemia D62 Hematochezia K92.1 Falls W19.XXXA Gout M10.9 Dizziness R42 Lumbar disc disease M51.9
[2023-10-30] MEDS: oxyCODONE HCL IR 5 MG TAB (IMMEDIATE RELEASE) PO PRN (20:26)
[2023-10-31] MEDS: ACETAMINOPHEN 500 MG TAB PO SCH ×3 (03:09→17:42)
[2023-10-31] MEDS: KETOROLAC TROMETHAMINE 15 MG/ML VIAL IV SCH ×4 (05:23→22:04)
[2023-10-31 07:44] LABS: Hematocrit (blood only) 25.7 % (37.0-47.0); Hemoglobin 8.4 g/dl (12.0-16.0); Mean Corpuscular Hemoglobin 31.9 pg (25.0-34.0); Mean Corpuscular Hgb Conc 32.7 g/dL (32.0-36.0); Mean Corpuscular Volume 97.7 fL (80.0-100.0); Mean Platelet Volume 9.1 fL (9.4-12.4); Platelet Count 445 K/uL (130-400); RDW Coefficient of Variation 13.2 % (11.5-14.5); RDW Standard Deviation 47.1 fL (36.4-46.3); Red Blood Count 2.63 M/uL (4.20-5.40); White Blood Count 4.93 K/ul (4.8-10.8)
[2023-10-31] MEDS: allopurinoL 300 MG TAB PO SCH (07:53)
[2023-10-31] MEDS: oxyCODONE HCL IR 5 MG TAB (IMMEDIATE RELEASE) PO PRN ×2 (07:53→20:20)
[2023-10-31] MEDS: ENOXAPARIN INJ 40 MG/0.4 ML SYR SQ SCH (07:53)
[2023-10-31 08:22] LABS: BUN Creatinine Ratio 9.8 (10-20); Creatinine Clr Calc Pharmacy 77.6 ml/min; Est GFR (African American) 108.3 ml/min; Est GFR (Non-African American) 93.4 ml/min; Magnesium 1.5 mg/dl (1.7-2.4); Potassium 3.5 mmol/L (3.5-5.1)
[2023-10-31] MEDS: MAGNESIUM SULFATE / D5W 1 GM/100 ML BAG IV SCH ×3 (09:29→13:37)
--- NOTE | 2023-10-31 09:50 | Surgery Progress Note ---
Date of Service October 31, 2023 Assessment & Plan (1) History of right hemicolectomy: Plan: Will advance to low fiber diet today. Increase activity to help with low back pain Discharge planning consult placed. Potentially home Wednesday or Wednesday. Admission and Anticipated Discharge Date Admission Date: October 25, 2023 Subjective Feeling better. First night with no diarrhea and she was able to sleep. Intermittent nausea but is hungry and requesting more solid food. Does have low back pain and hoping for heating pad. Wondering about discharge planning as she lives alone. Physical Exam Constitutional: WD/WN, vitals as above Eyes: PERRL, conjunctivae normal, anicteric sclerae Respiratory: normal respiratory effort, lungs clear to auscultation Cardiovascular: RRR, no murmur, no edema Gastrointestinal (Abdomen): Inspection/Auscultation: abdomen normal to inspection, normal bowel sounds and + abdominal surgical incision (clean and intact); abdomen not distended Percussion/Palpation: abdomen soft; abdomen nontender Neurologic: awake; no focal motor deficits Results & Data Vital Signs (Past 12 Hours) Vital Signs Temp Pulse Resp BP Pulse Ox O2 Del Method 10/31/23 07:22 36.7 C 67 18 105/62 94 Room Air Laboratory Results Abnormal lab results 10/31/23 Range/Units 07:06 RBC 2.63 L (4.20-5.40) M/uL Hgb 8.4 L (12.0-16.0) g/dl Hct 25.7 L (37.0-47.0) % RDW Std Deviation 47.1 H (36.4-46.3) fL Plt Count 445 H (130-400) K/uL MPV 9.1 L (9.4-12.4) fL BUN 5 L (6-23) mg/dl Creatinine 0.51 L (0.6-1.2) mg/dl BUN/Creatinine Ratio 9.8 L (10-20) Calcium 8.0 L (8.6-10.3) mg/dl Magnesium 1.5 L (1.7-2.4) mg/dl
--- NOTE | 2023-10-31 13:42 | Hospitalist Progress Note ---
Date of Service October 31, 2023 Assessment & Plan (1) Intussusception, ileocecal: Plan: -Diagnostic Laparoscopy, possible Hemicolectomy with Dr. Ramírez 10/26 - Pain management, DVT prophylaxis and bowel regiment per surgery recommendation - Diet advanced to low fiber - Encouraged ambulation/up to chair and IS - Diarrhea likely related to recent surgery - C.diff testing negative - Likely cause of low mag 1.5 --> IV replacement, recheck AM (2) Small bowel obstruction: Plan: - See intussusception above (3) Acute blood loss anemia: Plan: acute blood loss anemia -stable -recheck hgb if any further blood in stool (4) Hematochezia: Plan: No bowel movements since surgery (5) Falls: Plan: - Previously well documented in last PCP note in June - Suspect episode/fall 2 weeks ago was the same dizziness although with added concussion causing amnesia around the event -doubtful new pathology - Given preceding dizziness to events doubtful arrhythmia could consider outpatient monitor - however suspect dehydration related to intermittent diarrhea and decreased oral intake causing increased vasovagal syncope. - Sutures from prior fall removed while in the ER, site healing appropriately (6) Gout: Plan: Resume home allopurinol (7) Dizziness: Plan: -Contributing to falls as above -Improving (8) Lumbar disc disease: Plan: Chronic -heat or ice pack for patient comfort Plan Disposition - continued inpatient stay. Admission and Anticipated Discharge Date Admission Date: October 25, 2023 Supervising Physician Co-Signing Physician Notes Attending Attestation - Chart reviewed, care plan d/w KATINA Mcfadden. I agree w/ the monreal components of her documentation. Tommy Bryant MD Subjective Patient seen sitting up in bed. Very happy that surgery advanced her diet. No further diarrhea overnight. Dizziness has resolved. Abdominal Pain improving. No chest pain or shortness of breath. Review of Systems Review of Systems: All systems reviewed & are unremarkable except as noted in Subjective Physical Exam Physical Exam: General: WN/WD, look much better compared to prior in hospital stay Resp: normal respiratory effort, lungs clear to auscultation CV: RRR, no murmur, no edema Abd: nontender, + bowel sounds. incisions without signs of infection Extremities: Moves all extremities, bed mobility/core strength has improved. Neuro: A&O x3, Results & Data Results & Data Vital Signs (Past 12 Hours) Vital Signs Temp Pulse Resp BP Pulse Ox O2 Del Method 10/31/23 07:22 36.7 C 67 18 105/62 94 Room Air Laboratory Results CBC, chemistry, magnesium reviewed PG Care Time/CCT Total # of Minutes Spent Total Time Spent with Patient: Total time spent is greater than 50% in coordination of care (as documented) at patient's floor/unit and/or counseling patient: Coding Level of Care Code 31948 SUB INP/OBS CARE 2/35MIN Diagnoses Intussusception, ileocecal K56.1 Small bowel obstruction K56.609 Acute blood loss anemia D62 Hematochezia K92.1 Falls W19.XXXA Gout M10.9 Dizziness R42 Lumbar disc disease M51.9
[2023-10-31] MEDS: ONDANSETRON INJ 2 MG/ML 2 ML VIAL IV PRN (16:03)
[2023-11-01] MEDS: ACETAMINOPHEN 500 MG TAB PO SCH ×3 (01:59→18:13)
[2023-11-01] MEDS: KETOROLAC TROMETHAMINE 15 MG/ML VIAL IV SCH (04:11)
[2023-11-01] MEDS: oxyCODONE HCL IR 5 MG TAB (IMMEDIATE RELEASE) PO PRN ×4 (04:15→20:28)
[2023-11-01 07:31] LABS: BUN Creatinine Ratio 7.7 (10-20); Calcium 8.1 mg/dl (8.6-10.3); Creatinine Clr Calc Pharmacy 76.1 ml/min; Est GFR (African American) 107.6 ml/min; Est GFR (Non-African American) 92.8 ml/min; Potassium 3.5 mmol/L (3.5-5.1)
[2023-11-01 08:08] LABS: Basophils # (auto) 0.03 K/uL (0.00-0.20); Basophils % (auto) 0.6 %; Eosinophils # (auto) 0.13 K/uL (0.00-0.50); Eosinophils % (auto) 2.5 %; Hematocrit (blood only) 27.3 % (37.0-47.0); Immature Granulocytes # (auto) 0.06 K/uL (0.01-0.20); Immature Granulocytes % (auto) 1.1 %; Lymphocytes # (auto) 1.35 K/uL (1.20-3.40); Lymphocytes % (auto) 25.5 %; Mean Corpuscular Hemoglobin 31.9 pg (25.0-34.0); Mean Corpuscular Volume 96.8 fL (80.0-100.0); Mean Platelet Volume 9.4 fL (9.4-12.4); Monocytes # (auto) 0.68 K/uL (0.11-0.59); Monocytes % (auto) 12.8 %; Neutrophils # (auto) 3.05 K/uL (1.40-6.50); Neutrophils % (auto) 57.5 %; Platelet Count 500 K/uL (130-400); RDW Coefficient of Variation 13.2 % (11.5-14.5); Red Blood Count 2.82 M/uL (4.20-5.40)
[2023-11-01] MEDS: POTASSIUM CHLORIDE CRTAB 20 MEQ TABCR PO STA ×2 (08:34→08:37)
[2023-11-01] MEDS: allopurinoL 300 MG TAB PO SCH ×2 (08:35→08:37)
[2023-11-01] MEDS: ENOXAPARIN INJ 40 MG/0.4 ML SYR SQ SCH (08:35)
--- NOTE | 2023-11-01 10:14 | Surgery Progress Note ---
Date of Service November 01, 2023 Assessment & Plan (1) History of right hemicolectomy: Plan: She is tolerating a low fiber diet and has had return of bowel function I think plan will be to discharge her tomorrow if she continues to improve Admission and Anticipated Discharge Date Admission Date: October 25, 2023 Subjective Patient seen and examined. She is tolerating a low fiber diet. She is having bowel movements, loose however this is slowed overnight. Afebrile. Review of Systems Constitutional: no fever and no chills Physical Exam Constitutional: WD/WN, vitals as above Gastrointestinal (Abdomen): Soft, appropriately tender to palpation Incisions with Dermabond, no erythema or drainage Results & Data Vital Signs (Past 12 Hours) Vital Signs Temp Pulse Resp BP Pulse Ox O2 Del Method 11/01/23 07:38 36.6 C 68 16 135/66 92 Room Air PG Care Time/CCT Total # of Minutes Spent Total Time Spent with Patient: Total time spent is greater than 50% in coordination of care (as documented) at patient's floor/unit and/or counseling patient: Coding Level of Care Code 44490 Post Operative Follow-Up Diagnoses History of right hemicolectomy Z90.49
--- NOTE | 2023-11-01 12:43 | Hospitalist Progress Note ---
Date of Service November 01, 2023 Assessment & Plan (1) Intussusception, ileocecal: Plan: -Diagnostic Laparoscopy, possible Hemicolectomy with Dr. Ramírez 10/26 - Pain management, DVT prophylaxis and bowel regiment per surgery recommendation - Diet advanced to low fiber - Encouraged ambulation/up to chair and IS - Diarrhea likely related to recent surgery - C.diff testing negative - hypomagnesemia resolved (2) Small bowel obstruction: Plan: - See intussusception above (3) Acute blood loss anemia: Plan: acute blood loss anemia -stable, hemoglobin rising - thrombocytosis noted, likely reactive to anemia (4) Hematochezia: Plan: resolved. no further blood in the stool since surgery (5) Falls: Plan: - Previously well documented in last PCP note in June - Suspect episode/fall 2 weeks ago was the same dizziness although with added concussion causing amnesia around the event -doubtful new pathology - Given preceding dizziness to events doubtful arrhythmia could consider outpatient monitor - however suspect dehydration related to intermittent diarrhea and decreased oral intake causing increased vasovagal syncope. - Sutures from prior fall removed while in the ER, site healing appropriately denies dizziness for the past 2 days. (6) Gout: Plan: Resume home allopurinol (7) Lumbar disc disease: Plan: Chronic -heat or ice pack for patient comfort Plan Disposition - continued inpatient stay. hopeful for discharge tomorrow, pending PT/OT recommendations Admission and Anticipated Discharge Date Admission Date: October 25, 2023 Supervising Physician Co-Signing Physician Notes Attending Attestation - Chart reviewed, care plan d/w KATINA Mcfadden. I agree w/ the monreal components of her documentation. Dispo planning - likely discharge tomorrow. Labs and vitals remain stable. Low mag has been replaced and is normal today. Tommy Bryant MD Subjective Patient sitting at the side of the bed. Has multiple questions about discharge planning. States that she is feeling better, has tolerated some solid foods. Denies nausea. Still having loose stools, but not as frequent. Pain is controlled. Denies chest pain or shortness of breath Discussed with patient activity restrictions and low fiber diet. Informed her that surgery would be able to discuss this with her more tomorrow as well. Low fiber diet handout provided to her and her son. son purchased shower chair for her today. Review of Systems Review of Systems: All systems reviewed & are unremarkable except as noted in Subjective Physical Exam Physical Exam: General: WN/WD, looks much better compared to prior in hospital stay Resp: normal respiratory effort, lungs clear to auscultation CV: RRR, no murmur, no edema Abd: nontender, + bowel sounds. incisions without signs of infection Extremities: Moves all extremities, bed mobility/core strength has improved. Neuro: A&O x3, Results & Data Results & Data Vital Signs (Past 12 Hours) Vital Signs Temp Pulse Resp BP Pulse Ox O2 Del Method 11/01/23 07:38 36.6 C 68 16 135/66 92 Room Air Laboratory Results CBC and chemistry reviewed PG Care Time/CCT Total # of Minutes Spent Total Time Spent with Patient: Total time spent is greater than 50% in coordination of care (as documented) at patient's floor/unit and/or counseling patient: Coding Level of Care Code 98733 SUB INP/OBS CARE 2/35MIN Diagnoses Intussusception, ileocecal K56.1 Small bowel obstruction K56.609 Acute blood loss anemia D62 Hematochezia K92.1 Falls W19.XXXA Gout M10.9 Lumbar disc disease M51.9
[2023-11-01] MEDS: ONDANSETRON INJ 2 MG/ML 2 ML VIAL IV PRN (17:26)
[2023-11-01] MEDS: ACETAMINOPHEN 500 MG TAB PO PRN (21:42)
[2023-11-02] MEDS: ACETAMINOPHEN 500 MG TAB PO PRN (08:14)
[2023-11-02] MEDS: ENOXAPARIN INJ 40 MG/0.4 ML SYR SQ SCH (08:15)
[2023-11-02] MEDS: allopurinoL 300 MG TAB PO SCH (08:15)
--- NOTE | 2023-11-02 08:23 | Surgery Progress Note ---
Date of Service November 02, 2023 Assessment & Plan (1) History of right hemicolectomy: Plan: She continues to tolerate a low fiber diet She is stable for discharge from a surgical standpoint Her pathology was reviewed with her Will arrange for follow-up with Dr. Ramírez next week Surgery will sign off at this time, please call with any questions or concerns Admission and Anticipated Discharge Date Admission Date: October 25, 2023 Subjective Patient seen and examined tolerating a low fiber diet. Pain controlled. She is having bowel movements. Diarrhea has improved. Afebrile. Physical Exam Constitutional: WD/WN, vitals as above Gastrointestinal (Abdomen): Soft, appropriately tender to palpation Incisions with Dermabond, no erythema or drainage Results & Data Vital Signs (Past 12 Hours) Vital Signs Temp Pulse Pulse Resp BP BP Pulse Ox 11/02/23 07:00 37.0 C 69 14 132/76 94 11/01/23 21:02 36.7 C 67 16 127/86 95 O2 Del Method 11/02/23 07:00 Room Air 11/01/23 21:02 Room Air PG Care Time/CCT Total # of Minutes Spent Total Time Spent with Patient: Total time spent is greater than 50% in coordination of care (as documented) at patient's floor/unit and/or counseling patient: Coding Level of Care Code 62297 Post Operative Follow-Up Diagnoses History of right hemicolectomy Z90.49
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
== END 2023-11-02 13:10 | disposition home health service (06) | DRG 330 ==
LOC: ED 12:28 → SUATTDRO 18:34 → EDINP 18:34 → 3W 18:55